=== PATIENT | female | born 1945 | race Caucasian/White ===

== ENCOUNTER 2019-02-09 13:18 | Inpatient (IN) | payer MEDICARE, MEDICAID ==
[~2019-02-09] VITALS: Ht 167.6 cm; Wt 65.8 kg
[2019-02-09 13:26] VITALS: BP 116/67
--- NOTE | 2019-02-09 13:41 | NUR ---
ED Nurse Note: Patient presents to ER due to witnessed syncope at home. Patient lost consciousness for 30 sec per daughter. Per EMS, daughter assisted her to the ground and reports no trauma. Patient awake, alert, oriented x3. Able to follow commands. Regular, unlabored breathing noted. Patient reports no pain or dizziness on supine position. Per patient, patient had sudden dizziness, vomiting x 1. Placed patient on environmental monitoring specialist. Bed in lowest position.
--- NOTE | 2019-02-09 13:55 | NUR ---
ED Nurse Note: Report given to ANTHONY Jara. Patient resting in bed.
--- NOTE | 2019-02-09 14:00 | NUR ---
ED Nurse Note: REPORT RECEIVED FROM ANTHONY KENNEDY. PT AOX4 AND RESPONDING APPROPRIATELY TO QUESTIONS. BP IMPROVED SINCE ARRIVAL: 129/99.
[2019-02-09 14:09] LABS: APPEARANCE,URINE CLEAR; BILIRUBIN, URINE NEGATIVE (NEGATIVE); COLOR,URINE BROWN; GLUCOSE, URINE (UA) 1+ (NEGATIVE); KETONES,URINE 1+ (NEGATIVE); LEUKOCYTE ESTERASE ,URINE 1+ (NEGATIVE); NITRITE,URINE NEGATIVE (NEGATIVE); PH,URINE 7 (4.5-8.0); PROTEIN,URINE 4+ (NEGATIVE); UROBILINOGEN,URINE 1 MG/DL (0.0-1.0)
[2019-02-09 14:10] LABS: BASOPHILS % (AUTO) 0.9 % (0.0-2.0); EOSINOPHILS % (AUTO) 0.3 % (0.0-3.0); HEMATOCRIT 39.5 % (37.0-47.0); HEMOGLOBIN 13.1 G/DL (12.0-16.0); LYMPHOCYTES % (AUTO) 18.2 % (20.0-45.0); MEAN CORPUSCULAR VOLUME 95 FL (80-99); MONOCYTES % (AUTO) 10.8 % (1.0-10.0); NEUTROPHILS % (AUTO) 69.8 % (45.0-75.0); PLATELET COUNT 157 K/UL (150-450); RED BLOOD COUNT 4.14 M/UL (4.20-5.40); RED CELL DISTRIBUTION WIDTH 12.2 % (11.6-14.8); WHITE BLOOD COUNT 5.6 K/UL (4.8-10.8)
--- NOTE | 2019-02-09 14:15 | NUR ---
ED Nurse Note: XRAY AT BEDSIDE
[2019-02-09 14:17] LABS: ANION GAP 8 mmol/L (5-15); BLOOD UREA NITROGEN 16 mg/dL (7-18); CALCIUM 9.1 MG/DL (8.5-10.1); CARBON DIOXIDE 26 MMOL/L (21-32); CHLORIDE 105 MMOL/L (98-107); CREATININE 1.1 MG/DL (0.55-1.30); SODIUM 139 MMOL/L (136-145)
[2019-02-09 14:31] LABS: ALANINE AMINOTRANSFERASE 14 U/L (12-78); ALBUMIN 3.7 G/DL (3.4-5.0); ALKALINE PHOSPHATASE 76 U/L (46-116); ASPARTATE AMINO TRANSFERASE 19 U/L (15-37); BILIRUBIN,TOTAL 0.6 MG/DL (0.2-1.0); CKMB < 0.5 NG/ML (0.0-3.6); CREATINE KINASE 92 U/L (26-308)
--- NOTE | 2019-02-09 15:06 | Diagnostic Imaging Report ---
Indication: Shortness of breath Technique: One view of the chest Comparison: 09/25/2010 Findings: The heart is enlarged. This is a new finding. There is mild interstitial edema. No focal airspace consolidation. No effusions. Impression: Cardiomegaly, new since prior study 09/17/2010. Mild interstitial edema likely reflects mild congestive heart failure
[2019-02-09 15:30] VITALS: BP 117/47
--- NOTE | 2019-02-09 16:13 | NUR ---
ED Nurse Note: KINSEY ZUNIGA: [phone]
--- NOTE | 2019-02-09 16:28 | Emergency Room Report ---
History of Present Illness General Chief Complaint: Syncope Source: Patient, Family Member, EMS Present Illness HPI 73-year-old female presents ED for evaluation. Patient brought in by EMS status post syncopal episode. She states that she's been feeling weak with fever and chills since yesterday. Vomited today felt dizzy, and sat herself down. Denies LOC or hitting her head. Per EMS patient was initially hypotensive. IV fluids given. Upon arrival BP improved. Patient states she feels a little better. Denies chest pain or shortness of breath. Denies cough. Denies headaches or blurry vision. Denies sore throat or earache. No other aggravating relieving factors. Denies any other associated symptoms Allergies: Coded Allergies: No Known Allergies (Unverified , 02/09/19) Patient History Past Medical History: HTN Past Surgical History: none Pertinent Family History: none Social History: Denies: smoking, alcohol use, drug use Now: No Immunizations: UTD Reviewed Nursing Documentation: PMH: Agreed; PSxH: Agreed Nursing Documentation-PMH Past Medical History: No History, Except For Hx Hypertension: Yes Review of Systems All Other Systems: negative except mentioned in HPI Physical Exam Vital Signs Date Time Temp Pulse Resp B/P (MAP) Pulse Ox O2 Delivery O2 Flow Rate FiO2 02/09/19 13:09 99.3 84 16 96/60 99 Room Air Sp02 EP Interpretation: reviewed, normal General Appearance: no apparent distress, alert, GCS 15, non-toxic Head: normocephalic, atraumatic Eyes: bilateral eye normal inspection, bilateral eye PERRL ENT: hearing grossly normal, normal pharynx, no angioedema, normal voice Neck: full range of motion, supple/symm/no masses Respiratory: chest non-tender, lungs clear, normal breath sounds, speaking full sentences Cardiovascular #1: regular rate, rhythm, no edema Cardiovascular #2: 2+ carotid (R), 2+ carotid (L), 2+ radial (R), 2+ radial (L) , 2+ dorsalis pedis (R), 2+ dorsalis pedis (L) Gastrointestinal: normal bowel sounds, non tender, soft, non-distended, no guarding, no rebound Rectal: deferred Genitourinary: normal inspection, no CVA tenderness Musculoskeletal: back normal, gait/station normal, normal range of motion, non- tender Neurologic: alert, oriented x3, responsive, motor strength/tone normal, sensory intact, speech normal Psychiatric: judgement/insight normal, memory normal, mood/affect normal, no suicidal/homicidal ideation Reflexes: 3+ bicep (R), 3+ bicep (L), 3+ tricep (R), 3+ tricep (L), 3+ knee (R) , 3+ knee (L) Skin: normal color, no rash, warm/dry, well hydrated Lymphatic: no adenopathy Medical Decision Making Diagnostic Impression: Primary Impression: Weakness Additional Impression: Flu-like symptoms ER Course Hospital Course 73-year-old female presenting with weakness and dizziness Differential diagnoses include: DE/unstable angina, arrythmia, dehydration Clinical course Patient placed on stretcher. on cardiac care unit nurse. After initial history and physical I ordered labs, EKG, chest x-ray, IVFs labs reviewed- no leukocytosis, hemoglobin/hematocrit ok, electrolytes okay, troponins negative, ua negative, flu swab negative EKG- NSR, no acute ischemic changes interpreted by me Chest x-ray- no acute process Patient feels overall better but somewhat weak still. BP improved. Discussed with family and patient. They're not comfortable with discharge at this time. Given patient's age I believe patient should be admitted for IV hydration and further workup patient will be admitted to Dr Joselito Barber. I feel this is a highly complex case requiring extensive working including EKG/Rhythm strip, Xray/CT/US, Blood/urine lab work, repeat exams while in ED, and administration of strong opiates/narcotics for pain control, admission to hospital or close patient follow up. Diagnosis - weakness, flu like symptoms admitted to floor in serious condition Labs Test 02/09/19 13:36 02/09/19 13:39 White Blood Count 5.6 K/UL (4.8-10.8) Red Blood Count 4.14 M/UL (4.20-5.40) Hemoglobin 13.1 G/DL (12.0-16.0) Hematocrit 39.5 % (37.0-47.0) Mean Corpuscular Volume 95 FL (80-99) Mean Corpuscular Hemoglobin 31.7 PG (27.0-31.0) Mean Corpuscular Hemoglobin Concent 33.2 G/DL (32.0-36.0) Red Cell Distribution Width 12.2 % (11.6-14.8) Platelet Count 157 K/UL (150-450) Mean Platelet Volume 8.2 FL (6.5-10.1) Neutrophils (%) (Auto) 69.8 % (45.0-75.0) Lymphocytes (%) (Auto) 18.2 % (20.0-45.0) Monocytes (%) (Auto) 10.8 % (1.0-10.0) Eosinophils (%) (Auto) 0.3 % (0.0-3.0) Basophils (%) (Auto) 0.9 % (0.0-2.0) Sodium Level 139 MMOL/L (136-145) Potassium Level 4.0 MMOL/L (3.5-5.1) Chloride Level 105 MMOL/L (98-107) Carbon Dioxide Level 26 MMOL/L (21-32) Anion Gap 8 mmol/L (5-15) Blood Urea Nitrogen 16 mg/dL (7-18) Creatinine 1.1 MG/DL (0.55-1.30) Estimat Glomerular Filtration Rate mL/min (>60) Glucose Level 90 MG/DL (74-106) Calcium Level 9.1 MG/DL (8.5-10.1) Total Bilirubin 0.6 MG/DL (0.2-1.0) Aspartate Amino Transf (AST/SGOT) 19 U/L (15-37) Alanine Aminotransferase (ALT/SGPT) 14 U/L (12-78) Alkaline Phosphatase 76 U/L (46-116) Total Creatine Kinase 92 U/L (26-308) Creatine Kinase MB < 0.5 NG/ML (0.0-3.6) Creatine Kinase MB Relative Index Troponin I 0.000 ng/mL (0.000-0.056) Pro-B-Type Natriuretic Peptide 231 pg/mL (0-125) Total Protein 7.3 G/DL (6.4-8.2) Albumin 3.7 G/DL (3.4-5.0) Globulin 3.6 g/dL Albumin/Globulin Ratio 1.0 (1.0-2.7) Urine Color Brown Urine Appearance Clear Urine pH 7 (4.5-8.0) Urine Specific [place] 1.010 (1.005-1.035) Urine Protein 4+ (NEGATIVE) Urine Glucose (UA) 1+ (NEGATIVE) Urine Ketones 1+ (NEGATIVE) Urine Blood 4+ (NEGATIVE) Urine Nitrite Negative (NEGATIVE) Urine Bilirubin Negative (NEGATIVE) Urine Urobilinogen 1 MG/DL (0.0-1.0) Urine Leukocyte Esterase 1+ (NEGATIVE) Urine RBC 5-10 /HPF (0 - 2) Urine WBC 2-4 /HPF (0 - 2) Urine Squamous Epithelial Cells Moderate /LPF (NONE/OCC) Urine Bacteria Few /HPF (NONE) Urine Mucus Few /LPF (NONE/OCC) EKG Diagnostic Results Rate: normal Rhythm: NSR ST Segments: no acute changes ASA given to the pt in ED: No Rhythm Strip Diag. Results EP Interpretation: yes Rhythm: NSR, no PVC's, no ectopy Chest X-Ray Diagnostic Results Chest X-Ray Diagnostic Results : Chest X-Ray Ordered: Yes # of Views/Limited/Complete: 1 View Indication: Other - syncope EP Interpretation: Yes Interpretation: no consolidation, no effusion, no pneumothorax, no acute cardiopulmonary disease Impression: No acute disease Electronically Signed by: Electronically signed by Tres Squires MD Last Vital Signs Date Time Temp Pulse Resp B/P (MAP) Pulse Ox O2 Delivery O2 Flow Rate FiO2 02/09/19 13:26 84 16 116/67 100 Room Air 02/09/19 13:09 99.3 Status: improved Disposition: ADMITTED INPATIENT Condition: Serious Scripts Unable to Obtain Active Prescriptions or Reported Meds Referrals: NOT CHOSEN IPA/,REFERRING (PCP) Tres Squires MD Feb 09, 2019 16:28
[2019-02-09 17:00] VITALS: BP 108/43
--- NOTE | 2019-02-09 17:41 | NUR ---
ED Nurse Note: PER [facility], BED NOT READY. WILL CALL BACK IN 5 MINUTES.
[2019-02-09] MEDS ORDERED: Zolpidem 5mg tab ORAL PRN (17:45)
[2019-02-09] MEDS ORDERED: LORazepam Inj 2mg/ml 1ml IV PRN (17:45)
[2019-02-09] MEDS ORDERED: Mylanta II UD 30ml ORAL PRN (17:45)
[2019-02-09] MEDS ORDERED: Dextrose 50% 25ml Syringe IV PRN (17:45)
[2019-02-09] MEDS ORDERED: Morphine Sulfate 2mg/ml Inj(IV/IM USE ONLY) IVP PRN (17:45)
[2019-02-09] MEDS ORDERED: Miralax 17gm pkt ORAL PRN (17:45)
--- NOTE | 2019-02-09 17:58 | NUR ---
ED Nurse Note: [facility] CALLED FOR PT TRANSFER. REPORT GIVEN TO ANTHONY RIGGINS. PT TAKEN UP TO [facility] VIA GURNEY WITH ALL BELONGINGS ACCOMPANIED BY EMT. VSS.
[2019-02-09 19:00] VITALS: BP 119/60
--- NOTE | 2019-02-09 19:25 | History & Physical ---
History and Physical History & Physicial Dictated for Int Med-Dr Yee no. [id number]. Mich Ventura MD Feb 09, 2019 19:25
[2019-02-09 20:00] VITALS: BP 114/55
--- NOTE | 2019-02-09 20:25 | NUR ---
NURSE NOTES: Received report from Minda Gamboa. Patient is aox4. VSS, no shortness of breath. No dizziness noted. Skin intact. IV site intact and patent. No dizziness noted. Mild weakness, no nausea. Daughter at bedside. Daughter states she will bring in home meds. Explained to patient not to get up and to call nurse for assistance. Patient and daughter verbalized understanding. Oriented to room, side rails upx2. Daughter at bedside. Bed low, call light within reach.
--- NOTE | 2019-02-09 21:45 | History and Physical Report ---
DATE OF ADMISSION: 02/09/2019 CHIEF COMPLAINT: The patient is a 73-year-old white female who presents with chief complaint of "I passed out." HISTORY OF PRESENT ILLNESS: It began approximately three days prior to admission. The patient began to experience fever. The patient was also experiencing some dizziness. The patient also had nausea and vomiting. The patient called her daughter this morning. When the daughter arrived, the patient "passed out." The patient was out for a few seconds. EMS was called. The patient was found to be hypotensive in the field. The patient received two liters of intravenous normal saline. The patient's blood pressure returned to normal. The patient presented to [place] emergency room. The patient was admitted for syncopal episode to rule out acute coronary syndrome versus cerebrovascular accident. REVIEW OF SYSTEMS: CONSTITUTIONAL: The patient denies weight loss or weight gain. The patient complains of fevers and chills as above. HEENT: The patient denies ear or throat pain. The patient denies headache. CARDIOVASCULAR: The patient denies palpitations or chest pain. CHEST: The patient denies wheezes. The patient does complain of some shortness of breath. ABDOMEN: The patient complains of nausea and vomiting associated with loss of consciousness as above. The patient denies constipation or diarrhea. GENITOURINARY: The patient denies dysuria or increased frequency of urination. NEUROMUSCULAR: The patient denies seizures or generalized weakness. PAST MEDICAL HISTORY: Significant for: 1. Hypertension. 2. Hypercholesterolemia. 3. Hypothyroidism. PAST SURGICAL HISTORY: Significant for cholecystectomy. CURRENT MEDICATIONS: 1. Metoprolol of unknown dose. 2. Synthroid of unknown dose. 3. Statin of unknown dose. ALLERGIES: To codeine. SOCIAL HISTORY: The patient is and lives alone. The patient denies tobacco or alcohol use. PHYSICAL EXAMINATION: VITAL SIGNS: Temperature 99.1, respirations 20, pulse 92, blood pressure 117/47. GENERAL: The patient is well-developed and well-nourished white female, no apparent distress. HEENT: Eyes, pupils are equal and responsive to light and accommodation. Extraocular movements are intact. NECK: Supple without lymphadenopathy. CHEST: Lungs are clear to auscultation bilaterally without wheezes or rales. CARDIOVASCULAR: Regular rate. S1 and S2 are normal without murmurs, rubs, or gallops. ABDOMEN: Soft, nontender, and nondistended. Positive bowel sounds. No evidence of hepatosplenomegaly. Currently, no rebound or guarding noted. EXTREMITIES: Negative for clubbing, cyanosis, or edema. RECTAL/GENITAL: Refused. NEUROLOGIC: Cranial nerves II through XII are grossly intact without focal deficits. Motor strength is 5/5 bilaterally. Deep tendon reflexes are 2+ plantar. LABORATORY STUDIES: WBC 5.6, hemoglobin 13.1, hematocrit 39.5, platelets 157,000. Sodium 139, potassium 4.0, chloride 105, CO2 26, BUN 16, creatinine 1.1, glucose 90. Troponin 0.0. BNP slightly elevated 231. Chest x-ray revealed cardiomegaly with mild interstitial edema consistent with congestive heart failure. ASSESSMENT: This is a 73-year-old white female. 1. Fever. 2. Syncopal episode. 3. Congestive heart failure. 4. Hypertension. 5. Hypercholesterolemia. 6. Hypothyroidism. TREATMENT: 1. Syncopal episode. An echocardiogram is pending. A Cardiology consultation is pending with Dr. Bullock. We will follow recommendations of Cardiology. 2. Congestive heart failure by chest x-ray criteria. As above, a Cardiology consultation has been obtained with Dr. Fede Bullock. 3. BNP is only slightly elevated. Echocardiogram is pending. 4. Fever. Source of fever is unclear. The patient has been started empirically on intravenous Rocephin. 5. Hypertension. The patient is currently hypotensive. The patient is currently receiving intravenous fluids for possible orthostatic hypotension versus dehydration. 6. Hypercholesterolemia. 7. Hypothyroidism. A thyroid panel is pending. Mich Ventura M.D. DR: Cristofer JOB#: [id number] CC:
[2019-02-09] MEDS: D5NS 1,000 ML IV SCH (21:50)
[2019-02-10] VITALS: BP 114/54
--- NOTE | 2019-02-10 01:56 | NUR ---
NURSE NOTES: Patient's oral temp 101.9. Left message with Dr. Gr. Awaiting call back. Tylenol given, cooling measures applied. Will continue to monitor.
--- NOTE | 2019-02-10 02:45 | NUR ---
Patient's temp 99.9 oral. Will continue to monitor.
[2019-02-10 04:00] VITALS: BP 113/54
[2019-02-10 07:14] LABS: HEMATOCRIT 33.7 % (37.0-47.0); HEMOGLOBIN 11.4 G/DL (12.0-16.0); MEAN CORPUSCULAR VOLUME 95 FL (80-99); PLATELET COUNT 117 K/UL (150-450); RED BLOOD COUNT 3.54 M/UL (4.20-5.40); RED CELL DISTRIBUTION WIDTH 12.5 % (11.6-14.8); WHITE BLOOD COUNT 3.4 K/UL (4.8-10.8)
[2019-02-10 07:21] LABS: ALANINE AMINOTRANSFERASE 15 U/L (12-78); ALBUMIN 3.1 G/DL (3.4-5.0); ALKALINE PHOSPHATASE 62 U/L (46-116); ANION GAP 5 mmol/L (5-15); ASPARTATE AMINO TRANSFERASE 18 U/L (15-37); BILIRUBIN,TOTAL 0.6 MG/DL (0.2-1.0); BLOOD UREA NITROGEN 12 mg/dL (7-18); CALCIUM 8.7 MG/DL (8.5-10.1); CARBON DIOXIDE 27 MMOL/L (21-32); CHLORIDE 109 MMOL/L (98-107); CHOLESTEROL 125 MG/DL (< 200); CREATININE 0.9 MG/DL (0.55-1.30); HDL CHOLESTEROL 67 MG/DL (40-60); POTASSIUM 3.9 MMOL/L (3.5-5.1); SODIUM 141 MMOL/L (136-145); TRIGLYCERIDES 62 MG/DL (30-150)
--- NOTE | 2019-02-10 07:36 | NUR ---
NURSE NOTES:walking rounds done with leonor garza.patient awake,a/ox4,room air,iv site intact on rac,no c/o pain.plan of care discussed,verbalized understanding.
--- NOTE | 2019-02-10 07:43 | NUR ---
HAND-OFF: Report given to ANTHONY Snell. Patient stable.
[2019-02-10 08:00] VITALS: BP 115/55
--- NOTE | 2019-02-10 10:45 | Cardiac Electrophysiology PN ---
Subjective Subjective [id number] Objective Last 24 Hour Vital Signs Date Time Temp Pulse Resp B/P (MAP) Pulse Ox O2 Delivery O2 Flow Rate FiO2 02/10/19 08:00 98.7 74 17 115/55 (75) 100 02/10/19 07:36 Room Air 02/10/19 04:00 98.3 68 18 113/54 (73) 96 02/10/19 02:15 99.9 02/10/19 01:00 99.9 02/10/19 00:00 101.9 83 18 114/54 (74) 96 02/09/19 20:00 98.6 80 17 114/55 (74) 96 02/09/19 19:20 Room Air 02/09/19 19:00 100.3 92 17 119/60 (79) 99 02/09/19 17:53 98.6 93 16 111/45 97 Room Air 02/09/19 17:00 98.9 94 18 108/43 99 Room Air 02/09/19 15:30 99.1 92 20 117/47 98 Room Air 02/09/19 13:26 84 16 116/67 100 Room Air 02/09/19 13:09 99.3 84 16 96/60 99 Room Air Intake and Output 02/09/19 02/10/19 19:00 07:00 Intake Total 2000 ml 450 ml Output Total 10 ml 500 ml Balance 1990 ml -50 ml Intake IV Total 2000 ml 450 ml Output Urine Total 10 ml 500 ml # Voids 1 Laboratory Tests Test 02/09/19 13:36 02/09/19 13:39 02/10/19 05:35 White Blood Count 5.6 K/UL (4.8-10.8) 3.4 K/UL (4.8-10.8) L Red Blood Count 4.14 M/UL (4.20-5.40) L 3.54 M/UL (4.20-5.40) L Hemoglobin 13.1 G/DL (12.0-16.0) 11.4 G/DL (12.0-16.0) L Hematocrit 39.5 % (37.0-47.0) 33.7 % (37.0-47.0) L Mean Corpuscular Volume 95 FL (80-99) 95 FL (80-99) Mean Corpuscular Hemoglobin 31.7 PG (27.0-31.0) H 32.2 PG (27.0-31.0) H Mean Corpuscular Hemoglobin Concent 33.2 G/DL (32.0-36.0) 33.9 G/DL (32.0-36.0) Red Cell Distribution Width 12.2 % (11.6-14.8) 12.5 % (11.6-14.8) Platelet Count 157 K/UL (150-450) 117 K/UL (150-450) L Mean Platelet Volume 8.2 FL (6.5-10.1) 8.1 FL (6.5-10.1) Neutrophils (%) (Auto) 69.8 % (45.0-75.0) % (45.0-75.0) Lymphocytes (%) (Auto) 18.2 % (20.0-45.0) L % (20.0-45.0) Monocytes (%) (Auto) 10.8 % (1.0-10.0) H % (1.0-10.0) Eosinophils (%) (Auto) 0.3 % (0.0-3.0) % (0.0-3.0) Basophils (%) (Auto) 0.9 % (0.0-2.0) % (0.0-2.0) Sodium Level 139 MMOL/L (136-145) 141 MMOL/L (136-145) Potassium Level 4.0 MMOL/L (3.5-5.1) 3.9 MMOL/L (3.5-5.1) Chloride Level 105 MMOL/L (98-107) 109 MMOL/L (98-107) H Carbon Dioxide Level 26 MMOL/L (21-32) 27 MMOL/L (21-32) Anion Gap 8 mmol/L (5-15) 5 mmol/L (5-15) Blood Urea Nitrogen 16 mg/dL (7-18) 12 mg/dL (7-18) Creatinine 1.1 MG/DL (0.55-1.30) 0.9 MG/DL (0.55-1.30) Estimat Glomerular Filtration Rate mL/min (>60) mL/min (>60) Glucose Level 90 MG/DL (74-106) 96 MG/DL (74-106) Calcium Level 9.1 MG/DL (8.5-10.1) 8.7 MG/DL (8.5-10.1) Total Bilirubin 0.6 MG/DL (0.2-1.0) 0.6 MG/DL (0.2-1.0) Aspartate Amino Transf (AST/SGOT) 19 U/L (15-37) 18 U/L (15-37) Alanine Aminotransferase (ALT/SGPT) 14 U/L (12-78) 15 U/L (12-78) Alkaline Phosphatase 76 U/L (46-116) 62 U/L (46-116) Total Creatine Kinase 92 U/L (26-308) Creatine Kinase MB < 0.5 NG/ML (0.0-3.6) Creatine Kinase MB Relative Index Troponin I 0.000 ng/mL (0.000-0.056) Pro-B-Type Natriuretic Peptide 231 pg/mL (0-125) H Total Protein 7.3 G/DL (6.4-8.2) 6.3 G/DL (6.4-8.2) L Albumin 3.7 G/DL (3.4-5.0) 3.1 G/DL (3.4-5.0) L Globulin 3.6 g/dL 3.2 g/dL Albumin/Globulin Ratio 1.0 (1.0-2.7) 1.0 (1.0-2.7) Urine Color Brown Urine Appearance Clear Urine pH 7 (4.5-8.0) Urine Specific [place] 1.010 (1.005-1.035) Urine Protein 4+ (NEGATIVE) H Urine Glucose (UA) 1+ (NEGATIVE) H Urine Ketones 1+ (NEGATIVE) H Urine Blood 4+ (NEGATIVE) H Urine Nitrite Negative (NEGATIVE) Urine Bilirubin Negative (NEGATIVE) Urine Urobilinogen 1 MG/DL (0.0-1.0) H Urine Leukocyte Esterase 1+ (NEGATIVE) H Urine RBC 5-10 /HPF (0 - 2) H Urine WBC 2-4 /HPF (0 - 2) Urine Squamous Epithelial Cells Moderate /LPF (NONE/OCC) H Urine Bacteria Few /HPF (NONE) Urine Mucus Few /LPF (NONE/OCC) H Neutrophils % (Manual) Pending Lymphocytes % (Manual) Pending Platelet Estimate Pending Platelet Morphology Pending Triglycerides Level 62 MG/DL (30-150) Cholesterol Level 125 MG/DL (< 200) LDL Cholesterol 56 mg/dL (<100) HDL Cholesterol 67 MG/DL (40-60) H Cholesterol/HDL Ratio 1.9 (3.3-4.4) L Thyroid Stimulating Hormone (TSH) 0.629 uiU/mL (0.358-3.740) Microbiology Date/Time Source Procedure Growth Status 02/09/19 15:00 Nasal Nares Influenza Types A,B Antigen (JACK) - Final Complete Fede Bullock MD Feb 10, 2019 10:45
[2019-02-10 12:00] VITALS: BP 135/74
--- NOTE | 2019-02-10 12:38 | Cardiology Report ---
APPROVED REPORT EXAM: Two-dimensional and M-mode echocardiogram with Doppler and color Doppler. INDICATION Syncope M-Mode DIMENSIONS IVSd1.2 (0.7-1.1cm)Left Atrium (MM)3.5 (1.6-4.0cm) LVDd3.6 (3.5-5.6cm)Aortic Root2.6 (2.0-3.7cm) PWd1.0 (0.7-1.1cm)Aortic Cusp Exc.1.6 (1.5-2.0cm) IVSs1.2 cm LVDs2.2 (2.5-4.0cm) PWs1.5 cm Technically difficult study due to poor acoustic windows. Study quality precludes accurate assessment of regional wall motion. Normal left ventricular chamber size, systolic function and wall motion. Left ventricular ejection fraction estimated to be 65-70 %. Mild left ventricular hypertrophy. No evidence of pericardial effusion. All other cardiac chamber sizes are within normal limits. Focal aortic valve sclerosis with adequate cusp excursion. Thickened mitral valve leaflets with normal excursion. Moderate mitral annulus and aortic root calcification. Normal pulmonic valve structure. Normal tricuspid valve structure. IVC is normal in size with physiological collapse. A color flow and spectral Doppler study was performed and revealed: No aortic insufficiency. Mild mitral regurgitation. Normal left ventricular diastolic function. Trace tricuspid regurgitation. Tricuspid systolic velocities suggests peak right ventricular systolic pressure of 28 mmHg. Mild to moderate pulmonic regurgitation present.
--- NOTE | 2019-02-10 13:23 | Consultation ---
History of Present Illness General Chief Complaint: Syncope Present Illness Allergies: Coded Allergies: CODEINE (Verified Adverse Reaction, Intermediate, 02/10/19) Medication History Unable to Obtain Active Prescriptions or Reported Meds Patient History Healthcare decision maker Resuscitation status Full Code Advanced Directive on File Physical Exam Last 24 Hour Vital Signs Date Time Temp Pulse Resp B/P (MAP) Pulse Ox O2 Delivery O2 Flow Rate FiO2 02/10/19 12:00 99.0 87 18 135/74 (94) 98 02/10/19 08:00 98.7 74 17 115/55 (75) 100 02/10/19 07:36 Room Air 02/10/19 04:00 98.3 68 18 113/54 (73) 96 02/10/19 02:15 99.9 02/10/19 01:00 99.9 02/10/19 00:00 101.9 83 18 114/54 (74) 96 02/09/19 20:00 98.6 80 17 114/55 (74) 96 02/09/19 19:20 Room Air 02/09/19 19:00 100.3 92 17 119/60 (79) 99 02/09/19 17:53 98.6 93 16 111/45 97 Room Air 02/09/19 17:00 98.9 94 18 108/43 99 Room Air 02/09/19 15:30 99.1 92 20 117/47 98 Room Air 02/09/19 13:26 84 16 116/67 100 Room Air Intake and Output 02/09/19 02/10/19 19:00 07:00 Intake Total 2000 ml 450 ml Output Total 10 ml 500 ml Balance 1990 ml -50 ml Intake IV Total 2000 ml 450 ml Output Urine Total 10 ml 500 ml # Voids 1 Laboratory Tests Test 02/09/19 13:36 02/09/19 13:39 02/10/19 05:35 White Blood Count 5.6 K/UL (4.8-10.8) 3.4 K/UL (4.8-10.8) L Red Blood Count 4.14 M/UL (4.20-5.40) L 3.54 M/UL (4.20-5.40) L Hemoglobin 13.1 G/DL (12.0-16.0) 11.4 G/DL (12.0-16.0) L Hematocrit 39.5 % (37.0-47.0) 33.7 % (37.0-47.0) L Mean Corpuscular Volume 95 FL (80-99) 95 FL (80-99) Mean Corpuscular Hemoglobin 31.7 PG (27.0-31.0) H 32.2 PG (27.0-31.0) H Mean Corpuscular Hemoglobin Concent 33.2 G/DL (32.0-36.0) 33.9 G/DL (32.0-36.0) Red Cell Distribution Width 12.2 % (11.6-14.8) 12.5 % (11.6-14.8) Platelet Count 157 K/UL (150-450) 117 K/UL (150-450) L Mean Platelet Volume 8.2 FL (6.5-10.1) 8.1 FL (6.5-10.1) Neutrophils (%) (Auto) 69.8 % (45.0-75.0) % (45.0-75.0) Lymphocytes (%) (Auto) 18.2 % (20.0-45.0) L % (20.0-45.0) Monocytes (%) (Auto) 10.8 % (1.0-10.0) H % (1.0-10.0) Eosinophils (%) (Auto) 0.3 % (0.0-3.0) % (0.0-3.0) Basophils (%) (Auto) 0.9 % (0.0-2.0) % (0.0-2.0) Sodium Level 139 MMOL/L (136-145) 141 MMOL/L (136-145) Potassium Level 4.0 MMOL/L (3.5-5.1) 3.9 MMOL/L (3.5-5.1) Chloride Level 105 MMOL/L (98-107) 109 MMOL/L (98-107) H Carbon Dioxide Level 26 MMOL/L (21-32) 27 MMOL/L (21-32) Anion Gap 8 mmol/L (5-15) 5 mmol/L (5-15) Blood Urea Nitrogen 16 mg/dL (7-18) 12 mg/dL (7-18) Creatinine 1.1 MG/DL (0.55-1.30) 0.9 MG/DL (0.55-1.30) Estimat Glomerular Filtration Rate mL/min (>60) mL/min (>60) Glucose Level 90 MG/DL (74-106) 96 MG/DL (74-106) Calcium Level 9.1 MG/DL (8.5-10.1) 8.7 MG/DL (8.5-10.1) Total Bilirubin 0.6 MG/DL (0.2-1.0) 0.6 MG/DL (0.2-1.0) Aspartate Amino Transf (AST/SGOT) 19 U/L (15-37) 18 U/L (15-37) Alanine Aminotransferase (ALT/SGPT) 14 U/L (12-78) 15 U/L (12-78) Alkaline Phosphatase 76 U/L (46-116) 62 U/L (46-116) Total Creatine Kinase 92 U/L (26-308) Creatine Kinase MB < 0.5 NG/ML (0.0-3.6) Creatine Kinase MB Relative Index Troponin I 0.000 ng/mL (0.000-0.056) Pro-B-Type Natriuretic Peptide 231 pg/mL (0-125) H Total Protein 7.3 G/DL (6.4-8.2) 6.3 G/DL (6.4-8.2) L Albumin 3.7 G/DL (3.4-5.0) 3.1 G/DL (3.4-5.0) L Globulin 3.6 g/dL 3.2 g/dL Albumin/Globulin Ratio 1.0 (1.0-2.7) 1.0 (1.0-2.7) Urine Color Brown Urine Appearance Clear Urine pH 7 (4.5-8.0) Urine Specific [place] 1.010 (1.005-1.035) Urine Protein 4+ (NEGATIVE) H Urine Glucose (UA) 1+ (NEGATIVE) H Urine Ketones 1+ (NEGATIVE) H Urine Blood 4+ (NEGATIVE) H Urine Nitrite Negative (NEGATIVE) Urine Bilirubin Negative (NEGATIVE) Urine Urobilinogen 1 MG/DL (0.0-1.0) H Urine Leukocyte Esterase 1+ (NEGATIVE) H Urine RBC 5-10 /HPF (0 - 2) H Urine WBC 2-4 /HPF (0 - 2) Urine Squamous Epithelial Cells Moderate /LPF (NONE/OCC) H Urine Bacteria Few /HPF (NONE) Urine Mucus Few /LPF (NONE/OCC) H Differential Total Cells Counted 100 Neutrophils % (Manual) 67 % (45-75) Lymphocytes % (Manual) 23 % (20-45) Monocytes % (Manual) 10 % (1-10) Eosinophils % (Manual) 0 % (0-3) Basophils % (Manual) 0 % (0-2) Band Neutrophils 0 % (0-8) Platelet Estimate Decreased L Platelet Morphology Normal Red Blood Cell Morphology Normal Triglycerides Level 62 MG/DL (30-150) Cholesterol Level 125 MG/DL (< 200) LDL Cholesterol 56 mg/dL (<100) HDL Cholesterol 67 MG/DL (40-60) H Cholesterol/HDL Ratio 1.9 (3.3-4.4) L Thyroid Stimulating Hormone (TSH) 0.629 uiU/mL (0.358-3.740) Microbiology Date/Time Source Procedure Growth Status 02/09/19 15:00 Nasal Nares Influenza Types A,B Antigen (JACK) - Final Complete Height (Feet): 5 Height (Inches): 6.00 Weight (Pounds): 145 Medications Current Medications Medications (Trade) Dose Ordered Sig/Tenisha Route PRN Reason Start Time Stop Time Status Last Admin Dose Admin Acetaminophen (Tylenol) 650 mg Q4H PRN ORAL fever 02/09/19 17:45 03/11/19 17:44 02/10/19 01:45 Al Hydroxide/Mg Hydroxide (Mylanta II) 30 ml Q6H PRN ORAL dyspepsia 02/09/19 17:45 03/11/19 17:44 Dextrose (Dextrose 50%) 25 ml Q30M PRN IV Hypoglycemia 02/09/19 17:45 03/11/19 17:40 Dextrose (Dextrose 50%) 50 ml Q30M PRN IV hypoglycemia 02/09/19 17:45 03/11/19 17:44 Dextrose/Sodium Chloride 1,000 ml @ 50 mls/hr Q20H IV 02/09/19 22:00 03/11/19 21:59 02/09/19 21:50 Lorazepam (Ativan 2mg/ml 1ml) 0.5 mg Q4H PRN IV For Anxiety 02/09/19 17:45 02/16/19 17:44 Morphine Sulfate (Morphine Sulfate) 1 mg Q4H PRN IVP For Pain 02/09/19 17:45 02/16/19 17:44 Ondansetron HCl (Zofran) 4 mg Q6H PRN IVP Nausea & Vomiting 02/09/19 17:45 03/11/19 17:44 Polyethylene Glycol (Miralax) 17 gm HSPRN PRN ORAL Constipation 02/09/19 17:45 03/11/19 17:44 Zolpidem Tartrate (Ambien) 5 mg HSPRN PRN ORAL Insomnia 02/09/19 17:45 02/16/19 17:44 Assessment/Plan Problem List: (1) Sepsis ICD Codes: A41.9 - Sepsis, unspecified organism SNOMED: 11543496 (2) Acute encephalopathy ICD Codes: G93.40 - Encephalopathy, unspecified SNOMED: 88404625, 280374479 Assessment/Plan olivares culture iv abx renal US b/o flank pain dvt prophylaxis ID evaluation Dayanna Gr MD Feb 10, 2019 13:23
--- NOTE | 2019-02-10 13:53 | NUR ---
CASE MANAGEMENT:REVIEW 73 YR OLD FEMALE BIBA FROM HOME SI: WEAKNESS 99.4 84 16 96/60 99% ON RA IS: 1L NS BOLUS X2 IV ZOSYN CXR : TO MED/SURG PLAN: VENOUS DUPLEX 2DECHO ORTHO STATIC VITALS
[2019-02-10] MEDS ORDERED: Piperacillin/Tazobactam 3.375 GM in NS 110 ML IVPB SCH (14:30)
[2019-02-10 16:00] VITALS: BP_SYST 113; BP_SYST 118; BP_SYST 131; BP_DIAS 59; BP_DIAS 72; BP_DIAS 73
--- NOTE | 2019-02-10 16:29 | Consultation ---
History of Present Illness General Date patient seen: Feb 10, 2019 Chief Complaint: Syncope Present Illness HPI 73 y/o F with hx of HTN, HLD, hypothyroidism, CHF, s/p cholecystectomy presents to ED on 02/09 with syncopal episode . 1 day prior to admission reported feeling week, fevers and chills. Day of admission vomited, felt dizzy and sat herself down. Denied LOC or hitting her head. Per EMS, pt initially hypotensive but responded to IVFs. Denied CP, SOB, cough, WARREN, blurry vision, sore throat upon admission. Allergies: Coded Allergies: CODEINE (Verified Adverse Reaction, Intermediate, 02/10/19) Medication History Unable to Obtain Active Prescriptions or Reported Meds Patient History Healthcare decision maker Resuscitation status Full Code Advanced Directive on File Patient History Narrative Pmhx: as above Shx: Denies: smoking, alcohol use, drug use. The patient is and lives alone. Fhx: non contributory Review of Systems All Other Systems: negative except mentioned in HPI Physical Exam Physical Exam Narrative GENERAL: The patient is well-developed and well-nourished white female, no apparent distress. HEENT: Eyes, pupils are equal and responsive to light and accommodation. Extraocular movements are intact. NECK: Supple without lymphadenopathy. CHEST: Lungs are clear to auscultation bilaterally without wheezes or rales. CARDIOVASCULAR: Regular rate. S1 and S2 are normal without murmurs, rubs, or gallops. ABDOMEN: Soft, nontender, and nondistended. Positive bowel sounds. No evidence of hepatosplenomegaly. Currently, no rebound or guarding noted. EXTREMITIES: Negative for clubbing, cyanosis, or edema. NEUROLOGIC: Cranial nerves II through XII are grossly intact without focal deficits. Motor strength is 5/5 bilaterally. Deep tendon reflexes are 2+ plantar. Last 24 Hour Vital Signs Date Time Temp Pulse Resp B/P (MAP) Pulse Ox O2 Delivery O2 Flow Rate FiO2 02/10/19 12:00 99.0 87 18 135/74 (94) 98 02/10/19 08:00 98.7 74 17 115/55 (75) 100 02/10/19 07:36 Room Air 02/10/19 04:00 98.3 68 18 113/54 (73) 96 02/10/19 02:15 99.9 02/10/19 01:00 99.9 02/10/19 00:00 101.9 83 18 114/54 (74) 96 02/09/19 20:00 98.6 80 17 114/55 (74) 96 02/09/19 19:20 Room Air 02/09/19 19:00 100.3 92 17 119/60 (79) 99 02/09/19 17:53 98.6 93 16 111/45 97 Room Air 02/09/19 17:00 98.9 94 18 108/43 99 Room Air Intake and Output 02/09/19 02/10/19 19:00 07:00 Intake Total 2000 ml 500 ml Output Total 10 ml 500 ml Balance 1990 ml 0 ml Intake IV Total 2000 ml 500 ml Output Urine Total 10 ml 500 ml # Voids 1 Laboratory Tests Test 02/10/19 05:35 White Blood Count 3.4 K/UL (4.8-10.8) L Red Blood Count 3.54 M/UL (4.20-5.40) L Hemoglobin 11.4 G/DL (12.0-16.0) L Hematocrit 33.7 % (37.0-47.0) L Mean Corpuscular Volume 95 FL (80-99) Mean Corpuscular Hemoglobin 32.2 PG (27.0-31.0) H Mean Corpuscular Hemoglobin Concent 33.9 G/DL (32.0-36.0) Red Cell Distribution Width 12.5 % (11.6-14.8) Platelet Count 117 K/UL (150-450) L Mean Platelet Volume 8.1 FL (6.5-10.1) Neutrophils (%) (Auto) % (45.0-75.0) Lymphocytes (%) (Auto) % (20.0-45.0) Monocytes (%) (Auto) % (1.0-10.0) Eosinophils (%) (Auto) % (0.0-3.0) Basophils (%) (Auto) % (0.0-2.0) Differential Total Cells Counted 100 Neutrophils % (Manual) 67 % (45-75) Lymphocytes % (Manual) 23 % (20-45) Monocytes % (Manual) 10 % (1-10) Eosinophils % (Manual) 0 % (0-3) Basophils % (Manual) 0 % (0-2) Band Neutrophils 0 % (0-8) Platelet Estimate Decreased L Platelet Morphology Normal Red Blood Cell Morphology Normal Sodium Level 141 MMOL/L (136-145) Potassium Level 3.9 MMOL/L (3.5-5.1) Chloride Level 109 MMOL/L (98-107) H Carbon Dioxide Level 27 MMOL/L (21-32) Anion Gap 5 mmol/L (5-15) Blood Urea Nitrogen 12 mg/dL (7-18) Creatinine 0.9 MG/DL (0.55-1.30) Estimat Glomerular Filtration Rate mL/min (>60) Glucose Level 96 MG/DL (74-106) Calcium Level 8.7 MG/DL (8.5-10.1) Total Bilirubin 0.6 MG/DL (0.2-1.0) Aspartate Amino Transf (AST/SGOT) 18 U/L (15-37) Alanine Aminotransferase (ALT/SGPT) 15 U/L (12-78) Alkaline Phosphatase 62 U/L (46-116) Total Protein 6.3 G/DL (6.4-8.2) L Albumin 3.1 G/DL (3.4-5.0) L Globulin 3.2 g/dL Albumin/Globulin Ratio 1.0 (1.0-2.7) Triglycerides Level 62 MG/DL (30-150) Cholesterol Level 125 MG/DL (< 200) LDL Cholesterol 56 mg/dL (<100) HDL Cholesterol 67 MG/DL (40-60) H Cholesterol/HDL Ratio 1.9 (3.3-4.4) L Thyroid Stimulating Hormone (TSH) 0.629 uiU/mL (0.358-3.740) Height (Feet): 5 Height (Inches): 6.00 Weight (Pounds): 145 Medications Current Medications Medications (Trade) Dose Ordered Sig/Tenisha Route PRN Reason Start Time Stop Time Status Last Admin Dose Admin Acetaminophen (Tylenol) 650 mg Q4H PRN ORAL fever 02/09/19 17:45 03/11/19 17:44 02/10/19 01:45 Al Hydroxide/Mg Hydroxide (Mylanta II) 30 ml Q6H PRN ORAL dyspepsia 02/09/19 17:45 03/11/19 17:44 Dextrose (Dextrose 50%) 25 ml Q30M PRN IV Hypoglycemia 02/09/19 17:45 03/11/19 17:40 Dextrose (Dextrose 50%) 50 ml Q30M PRN IV hypoglycemia 02/09/19 17:45 03/11/19 17:44 Dextrose/Sodium Chloride 1,000 ml @ 50 mls/hr Q20H IV 02/09/19 22:00 03/11/19 21:59 02/09/19 21:50 Lorazepam (Ativan 2mg/ml 1ml) 0.5 mg Q4H PRN IV For Anxiety 02/09/19 17:45 02/16/19 17:44 Morphine Sulfate (Morphine Sulfate) 1 mg Q4H PRN IVP For Pain 02/09/19 17:45 02/16/19 17:44 Ondansetron HCl (Zofran) 4 mg Q6H PRN IVP Nausea & Vomiting 02/09/19 17:45 03/11/19 17:44 Piperacillin Sod/ Tazobactam Sod 3.375 gm/Sodium Chloride 110 ml @ 27.5 mls/hr EVERY 8 HOURS IVPB 02/10/19 14:30 02/17/19 14:29 02/10/19 15:04 Polyethylene Glycol (Miralax) 17 gm HSPRN PRN ORAL Constipation 02/09/19 17:45 03/11/19 17:44 Zolpidem Tartrate (Ambien) 5 mg HSPRN PRN ORAL Insomnia 02/09/19 17:45 02/16/19 17:44 Assessment/Plan Assessment/Plan Abx: Zosyn 02/10- Assessment: Sepsis- ?source-- ?Flu despite neg screen test. +dry cough (?bronchitis vs early PNA)- r/o bacteremia -u/a neg -CXR: Cardiomegaly, new since prior study 09/17/2010. Mild interstitial edema likely reflects mild congestive heart failure -influenza sc neg Fever Mild pancytopenia Syncopal episode- likely orthostatic hypotension/dehydration HTN HLD hypothyroidism CHF s/p cholecystectomy Plan: -Switch Zosyn #1 to Ceftriaxone and start empiric Tamiflu -f/u cx -Monitor CBC/CMP, temperatures -Bcx x2 -aspiration precautions Thank you for this consultation. Will continue to follow along with you. Discussed with Radha Dwyer M.D. Feb 10, 2019 16:29
--- NOTE | 2019-02-10 16:33 | NUR ---
NURSE NOTES:TEMP 100.8,FOR BLOOD CULTURE,IS PROVIDED AND INSTRUCTED BY RT.STARTED ON ZOSYN IV
--- NOTE | 2019-02-10 17:32 | Internal Med Progress Note ---
Subjective Physician Name Julio C Yee Attending Physician Julio C eYe MD Current Medications Medications (Trade) Dose Ordered Sig/Tenisha Route PRN Reason Start Time Stop Time Status Last Admin Dose Admin Acetaminophen (Tylenol) 650 mg Q4H PRN ORAL fever 02/09/19 17:45 03/11/19 17:44 02/10/19 01:45 Al Hydroxide/Mg Hydroxide (Mylanta II) 30 ml Q6H PRN ORAL dyspepsia 02/09/19 17:45 03/11/19 17:44 Dextrose (Dextrose 50%) 25 ml Q30M PRN IV Hypoglycemia 02/09/19 17:45 03/11/19 17:40 Dextrose (Dextrose 50%) 50 ml Q30M PRN IV hypoglycemia 02/09/19 17:45 03/11/19 17:44 Dextrose/Sodium Chloride 1,000 ml @ 50 mls/hr Q20H IV 02/09/19 22:00 03/11/19 21:59 02/09/19 21:50 Lorazepam (Ativan 2mg/ml 1ml) 0.5 mg Q4H PRN IV For Anxiety 02/09/19 17:45 02/16/19 17:44 Morphine Sulfate (Morphine Sulfate) 1 mg Q4H PRN IVP For Pain 02/09/19 17:45 02/16/19 17:44 Ondansetron HCl (Zofran) 4 mg Q6H PRN IVP Nausea & Vomiting 02/09/19 17:45 03/11/19 17:44 Piperacillin Sod/ Tazobactam Sod 3.375 gm/Sodium Chloride 110 ml @ 27.5 mls/hr EVERY 8 HOURS IVPB 02/10/19 14:30 02/17/19 14:29 02/10/19 15:04 Polyethylene Glycol (Miralax) 17 gm HSPRN PRN ORAL Constipation 02/09/19 17:45 03/11/19 17:44 Zolpidem Tartrate (Ambien) 5 mg HSPRN PRN ORAL Insomnia 02/09/19 17:45 02/16/19 17:44 Allergies: Coded Allergies: CODEINE (Verified Adverse Reaction, Intermediate, 02/10/19) Subjective Awake, alert, responsive, complaining about dizziness, dry cough, feverish. Denies any chest pain, denies any nausea vomiting. Objective Last Vital Signs Date Time Temp Pulse Resp B/P (MAP) Pulse Ox O2 Delivery O2 Flow Rate FiO2 02/10/19 16:00 85 18 113/73 (86) 98 02/10/19 16:00 100.8 02/10/19 07:36 Room Air Laboratory Tests Test 02/10/19 05:35 White Blood Count 3.4 K/UL (4.8-10.8) L Red Blood Count 3.54 M/UL (4.20-5.40) L Hemoglobin 11.4 G/DL (12.0-16.0) L Hematocrit 33.7 % (37.0-47.0) L Mean Corpuscular Volume 95 FL (80-99) Mean Corpuscular Hemoglobin 32.2 PG (27.0-31.0) H Mean Corpuscular Hemoglobin Concent 33.9 G/DL (32.0-36.0) Red Cell Distribution Width 12.5 % (11.6-14.8) Platelet Count 117 K/UL (150-450) L Mean Platelet Volume 8.1 FL (6.5-10.1) Neutrophils (%) (Auto) % (45.0-75.0) Lymphocytes (%) (Auto) % (20.0-45.0) Monocytes (%) (Auto) % (1.0-10.0) Eosinophils (%) (Auto) % (0.0-3.0) Basophils (%) (Auto) % (0.0-2.0) Differential Total Cells Counted 100 Neutrophils % (Manual) 67 % (45-75) Lymphocytes % (Manual) 23 % (20-45) Monocytes % (Manual) 10 % (1-10) Eosinophils % (Manual) 0 % (0-3) Basophils % (Manual) 0 % (0-2) Band Neutrophils 0 % (0-8) Platelet Estimate Decreased L Platelet Morphology Normal Red Blood Cell Morphology Normal Sodium Level 141 MMOL/L (136-145) Potassium Level 3.9 MMOL/L (3.5-5.1) Chloride Level 109 MMOL/L (98-107) H Carbon Dioxide Level 27 MMOL/L (21-32) Anion Gap 5 mmol/L (5-15) Blood Urea Nitrogen 12 mg/dL (7-18) Creatinine 0.9 MG/DL (0.55-1.30) Estimat Glomerular Filtration Rate mL/min (>60) Glucose Level 96 MG/DL (74-106) Calcium Level 8.7 MG/DL (8.5-10.1) Total Bilirubin 0.6 MG/DL (0.2-1.0) Aspartate Amino Transf (AST/SGOT) 18 U/L (15-37) Alanine Aminotransferase (ALT/SGPT) 15 U/L (12-78) Alkaline Phosphatase 62 U/L (46-116) Total Protein 6.3 G/DL (6.4-8.2) L Albumin 3.1 G/DL (3.4-5.0) L Globulin 3.2 g/dL Albumin/Globulin Ratio 1.0 (1.0-2.7) Triglycerides Level 62 MG/DL (30-150) Cholesterol Level 125 MG/DL (< 200) LDL Cholesterol 56 mg/dL (<100) HDL Cholesterol 67 MG/DL (40-60) H Cholesterol/HDL Ratio 1.9 (3.3-4.4) L Thyroid Stimulating Hormone (TSH) 0.629 uiU/mL (0.358-3.740) Microbiology Date/Time Source Procedure Growth Status 02/09/19 15:00 Nasal Nares Influenza Types A,B Antigen (JACK) - Final Complete Intake and Output 02/09/19 02/10/19 19:00 07:00 Intake Total 2000 ml 500 ml Output Total 10 ml 500 ml Balance 1990 ml 0 ml Intake IV Total 2000 ml 500 ml Output Urine Total 10 ml 500 ml # Voids 1 Objective General: No acute distress, awake and alert HEENT: NCAT, sclera anicteric, PERRL, EOMI. Neck: Supple, no significant jugular venous distention, Lungs: Good inspiratory effort, decreased air in the bases, no Wheeze or Rales. Heart: Regular rate and rhythm, normal S1/S2, no murmurs Abdomen: soft, left flank tenderness, nondistended. Normoactive bowel sounds. / Rectal: Refused and deferred. Extremities: No Cyanosis , clubbing or edema. Neuro: A&O x 3, Able to move all extremities Skin: warm, no rashes or lesions Psych: Normal mood and affect Assessment/Plan Assessment/Plan 1. Fever. 2. Syncopal episode. 3. Congestive heart failure. 4. Hypertension. 5. Hypercholesterolemia. 6. Hypothyroidism. TREATMENT: 1. Syncopal episode. An echocardiogram is pending. A Cardiology consultation is pending with Dr. Bullock. We will follow recommendations of Cardiology. 2. Congestive heart failure by chest x-ray criteria. As above, a Cardiology consultation has been obtained with Dr. Fede Bullock. 3. BNP is only slightly elevated. Echocardiogram is pending. 4. Fever. Source of fever is unclear. The patient has been started empirically on intravenous Rocephin. 5. Hypertension. The patient is currently hypotensive. The patient is currently receiving intravenous fluids for possible orthostatic hypotension versus dehydration. 6. Hypercholesterolemia. 7. Hypothyroidism. 2D Echo: Technically difficult study due to poor acoustic windows. Study quality precludes accurate assessment of regional wall motion. Normal left ventricular chamber size, systolic function and wall motion. Left ventricular ejection fraction estimated to be 65-70 %. Mild left ventricular hypertrophy. No evidence of pericardial effusion. All other cardiac chamber sizes are within normal limits. Focal aortic valve sclerosis with adequate cusp excursion. Thickened mitral valve leaflets with normal excursion. Moderate mitral annulus and aortic root calcification. Normal pulmonic valve structure. Normal tricuspid valve structure. IVC is normal in size with physiological collapse. A color flow and spectral Doppler study was performed and revealed: No aortic insufficiency. Mild mitral regurgitation. Normal left ventricular diastolic function. Trace tricuspid regurgitation. Tricuspid systolic velocities suggests peak right ventricular systolic pressure of 28 mmHg. Mild to moderate pulmonic regurgitation present. Julio C Yee MD Feb 10, 2019 17:32
--- NOTE | 2019-02-10 18:57 | Diagnostic Imaging Report ---
EXAM: US Retroperitoneal Complete, Renal CLINICAL HISTORY: PAIN TECHNIQUE: Real-time ultrasound of the retroperitoneum (complete) with image documentation. COMPARISON: No relevant prior studies available. FINDINGS: Right kidney: Unremarkable. No stones. No solid mass. No hydronephrosis. Left kidney: Unremarkable. No stones. No solid mass. No hydronephrosis. Bladder: Unremarkable as visualized. IMPRESSION: Normal retroperitoneal ultrasound.
--- NOTE | 2019-02-10 19:24 | NUR ---
HAND-OFF: Report given to PAULINA CRUZ.PATIENT STABLE.
--- NOTE | 2019-02-10 19:34 | NUR ---
NURSE NOTES: Received report from Minda Snell. Patient is in bed, aox4. No signs of distress. No pain noted. New IV site left hand 22 gauge intact, clean dry. Commode placed at bedside. Reminded patient to call before getting up. Patient verbalized understanding. Family at bedside. Bed low, call light within reach.
[2019-02-10 20:00] VITALS: BP 119/52
--- NOTE | 2019-02-10 20:00 | Consultation ---
DATE OF CONSULTATION: 02/10/2019 CARDIOLOGY CONSULTATION CONSULTING PHYSICIAN: Fede Bullock M.D. REFERRING PHYSICIAN: Julio C Yee M.D. REASON FOR CONSULTATION: Syncope. HISTORY OF PRESENT ILLNESS: The patient is a 73-year-old lady with history of hypertension, on Avapro at home with history of hypothyroidism and hyperlipidemia, presented to hospital after she passed out. The patient has started developing fever and dizziness for three days prior to the admission, and also had nausea and vomiting. The patient for a few seconds episode of hypotensive in the field. The patient is on 2 L of normal saline and blood pressure subsequently normalized. The patient was admitted and a Cardiology consultation was obtained for further evaluation. Her EKG showed sinus rhythm with sinus arrhythmia with nonspecific T-wave abnormality and echocardiogram showed EF of 60%. REVIEW OF SYSTEMS: Negative other than what was mentioned in the history of present illness. PAST MEDICAL HISTORY: 1. Hypertension. 2. Hyperlipidemia. 3. Hypothyroidism. PAST SURGICAL HISTORY: Includes cholecystectomy. MEDICATIONS: Per reconciliation. ALLERGIES: She is allergic to codeine. SOCIAL HISTORY: She is , lives alone. Does not smoke or drink alcohol. PHYSICAL EXAMINATION: VITAL SIGNS: Show blood pressure of 115/55, pulse 74, respirations 17, and temperature 98.7 and initial temperature was 101.9. HEAD AND NECK: Showed no JVD. LUNGS: Clear. CARDIOVASCULAR: Shows regular S1 and S2 with no gallop or murmur. ABDOMEN: Soft. EXTREMITIES: No pitting edema. LABORATORY DATA: Her labs show white count of 6.4, hemoglobin 11.4, hematocrit 32.7, and platelet count of 117,000. Sodium 141, potassium 3.9, BUN of 12, creatinine of 0.9 and glucose of 96. BNP is 231. First troponin is negative. ASSESSMENT AND PLAN: 1. Syncopal episodes. Etiology is unclear at this time. The patient's first troponin is negative, completely rule out DE protocol. EKG does not show any acute ischemic changes. Echocardiogram showed EF of 60%. The patient's blood pressure normalized after IV fluids. I will check orthostatic vital signs as well. 2. History of hypertension. The patient was on Avapro. Hold off antihypertensive agents. 3. History of hyperlipidemia. 4. Temperature of 101.9. 5. Questionable congestive heart failure. Echocardiogram showed normal left ventricular systolic function, EF of 60% despite mil 6. Hypothyroidism. Thank you very much, Dr. Yee, for allowing me to participate in the care of this patient. Please do not hesitate to contact me for any questions regarding my evaluation. Fede Bullock M.D. DR: SAL JOB#: [id number] CC:
[2019-02-10] MEDS: D5NS 1,000 ML IV SCH (20:39)
[2019-02-10] MEDS: cefTRIAXone 1 GM in D5W 55 ML IVPB SCH (22:01)
[2019-02-11] VITALS: BP 116/55
[2019-02-11 04:00] VITALS: BP 118/58
--- NOTE | 2019-02-11 07:58 | NUR ---
NURSE NOTES: Received report from ANTHONY Talbot. Rounding done with outgoing nurse. No respiratory distress noted. Denies any pain at this time. Patient on SCD for DVT prophylaxis. Call light within reach. Will continue to monitor.
[2019-02-11 08:00] VITALS: BP 105/72
--- NOTE | 2019-02-11 08:04 | NUR ---
HAND-OFF: Report given to ANTHONY Treadwell. Patient stable.
--- NOTE | 2019-02-11 11:32 | Infectious Diseases Prog Note ---
Assessment/Plan Assessment/Plan Abx: Zosyn 02/10- Assessment: Sepsis- ?source-- ?Flu despite neg screen test. +dry cough (?bronchitis vs early PNA)- r/o bacteremia -u/a neg -CXR: Cardiomegaly, new since prior study 09/17/2010. Mild interstitial edema likely reflects mild congestive heart failure -influenza sc neg -Bcx p Fever Mild pancytopenia- monitor- if worsening may need to consider hematological/ malignancy process Syncopal episode- likely orthostatic hypotension/dehydration HTN HLD hypothyroidism CHF s/p cholecystectomy Plan: -Continue Ceftriaxone #2 and empiric Tamiflu #2 for now -02/10 SP Zosyn #1 -f/u cx -Monitor CBC/CMP, temperatures -aspiration precautions -CBC, CMP am -peripheral smear -CXR am Thank you for this consultation. Will continue to follow along with you. Discussed with RN. Subjective Allergies: Coded Allergies: CODEINE (Verified Adverse Reaction, Intermediate, 02/10/19) Subjective Tm 100.8 no cbc today bcx p Objective Vital Signs Last 24 Hour Vital Signs Date Time Temp Pulse Resp B/P (MAP) Pulse Ox O2 Delivery O2 Flow Rate FiO2 02/11/19 09:00 Room Air 02/11/19 08:00 73 82 89 02/11/19 08:00 100.4 82 20 105/72 (83) 97 02/11/19 04:00 99.8 74 18 118/58 (78) 94 02/11/19 00:52 79 86 86 02/11/19 00:00 99.4 74 18 116/55 (75) 98 02/10/19 21:00 Room Air 02/10/19 20:00 99.2 75 18 119/52 (74) 98 02/10/19 16:00 85 18 113/73 (86) 98 02/10/19 16:00 100.8 83 18 131/72 (91) 98 02/10/19 16:00 78 18 118/59 (78) 98 02/10/19 12:00 99.0 87 18 135/74 (94) 98 Height (Feet): 5 Height (Inches): 6.00 Weight (Pounds): 145 Objective GENERAL: The patient is well-developed and well-nourished white female, no apparent distress. HEENT: Eyes, pupils are equal and responsive to light and accommodation. Extraocular movements are intact. NECK: Supple without lymphadenopathy. CHEST: Lungs are clear to auscultation bilaterally without wheezes or rales. CARDIOVASCULAR: Regular rate. S1 and S2 are normal without murmurs, rubs, or gallops. ABDOMEN: Soft, nontender, and nondistended. Positive bowel sounds. No evidence of hepatosplenomegaly. Currently, no rebound or guarding noted. EXTREMITIES: Negative for clubbing, cyanosis, or edema. Microbiology Date/Time Source Procedure Growth Status 02/09/19 15:00 Nasal Nares Influenza Types A,B Antigen (JACK) - Final Complete Current Medications Medications (Trade) Dose Ordered Sig/Tenisha Route PRN Reason Start Time Stop Time Status Last Admin Dose Admin Acetaminophen (Tylenol) 650 mg Q4H PRN ORAL fever 02/09/19 17:45 03/11/19 17:44 02/11/19 09:45 Al Hydroxide/Mg Hydroxide (Mylanta II) 30 ml Q6H PRN ORAL dyspepsia 02/09/19 17:45 03/11/19 17:44 Ceftriaxone Sodium 1 gm/ Dextrose 55 ml @ 110 mls/hr Q24H IVPB 02/10/19 23:00 02/17/19 22:59 02/10/19 22:01 Dextrose (Dextrose 50%) 25 ml Q30M PRN IV Hypoglycemia 02/09/19 17:45 03/11/19 17:40 Dextrose (Dextrose 50%) 50 ml Q30M PRN IV hypoglycemia 02/09/19 17:45 03/11/19 17:44 Dextrose/Sodium Chloride 1,000 ml @ 50 mls/hr Q20H IV 02/09/19 22:00 03/11/19 21:59 02/10/19 20:39 Lorazepam (Ativan 2mg/ml 1ml) 0.5 mg Q4H PRN IV For Anxiety 02/09/19 17:45 02/16/19 17:44 Morphine Sulfate (Morphine Sulfate) 1 mg Q4H PRN IVP For Pain 02/09/19 17:45 02/16/19 17:44 Ondansetron HCl (Zofran) 4 mg Q6H PRN IVP Nausea & Vomiting 02/09/19 17:45 03/11/19 17:44 Oseltamivir Phosphate (Tamiflu) 30 mg BID ORAL 02/10/19 20:00 02/15/19 09:01 02/11/19 09:00 Polyethylene Glycol (Miralax) 17 gm HSPRN PRN ORAL Constipation 02/09/19 17:45 03/11/19 17:44 Zolpidem Tartrate (Ambien) 5 mg HSPRN PRN ORAL Insomnia 02/09/19 17:45 02/16/19 17:44 Radha Roa M.D. Feb 11, 2019 11:32
[2019-02-11 12:00] VITALS: BP 115/48
[2019-02-11] MEDS: D5NS 1,000 ML IV SCH ×2 (14:00→17:56)
--- NOTE | 2019-02-11 14:23 | Internal Med Progress Note ---
Subjective Physician Name Julio C Yee Attending Physician Julio C Yee MD Current Medications Medications (Trade) Dose Ordered Sig/Tenisha Route PRN Reason Start Time Stop Time Status Last Admin Dose Admin Acetaminophen (Tylenol) 650 mg Q4H PRN ORAL fever 02/09/19 17:45 03/11/19 17:44 02/11/19 09:45 Al Hydroxide/Mg Hydroxide (Mylanta II) 30 ml Q6H PRN ORAL dyspepsia 02/09/19 17:45 03/11/19 17:44 Ceftriaxone Sodium 1 gm/ Dextrose 55 ml @ 110 mls/hr Q24H IVPB 02/10/19 23:00 02/17/19 22:59 02/10/19 22:01 Dextrose (Dextrose 50%) 25 ml Q30M PRN IV Hypoglycemia 02/09/19 17:45 03/11/19 17:40 Dextrose (Dextrose 50%) 50 ml Q30M PRN IV hypoglycemia 02/09/19 17:45 03/11/19 17:44 Dextrose/Sodium Chloride 1,000 ml @ 50 mls/hr Q20H IV 02/09/19 22:00 03/11/19 21:59 02/10/19 20:39 Lorazepam (Ativan 2mg/ml 1ml) 0.5 mg Q4H PRN IV For Anxiety 02/09/19 17:45 02/16/19 17:44 Morphine Sulfate (Morphine Sulfate) 1 mg Q4H PRN IVP For Pain 02/09/19 17:45 02/16/19 17:44 Ondansetron HCl (Zofran) 4 mg Q6H PRN IVP Nausea & Vomiting 02/09/19 17:45 03/11/19 17:44 Oseltamivir Phosphate (Tamiflu) 30 mg BID ORAL 02/10/19 20:00 02/15/19 09:01 02/11/19 09:00 Polyethylene Glycol (Miralax) 17 gm HSPRN PRN ORAL Constipation 02/09/19 17:45 03/11/19 17:44 Zolpidem Tartrate (Ambien) 5 mg HSPRN PRN ORAL Insomnia 02/09/19 17:45 02/16/19 17:44 Allergies: Coded Allergies: CODEINE (Verified Adverse Reaction, Intermediate, 02/10/19) Subjective Awake, alert, responsive, dry cough. Denies any chest pain, denies any nausea vomiting. No fever reported. Objective Last Vital Signs Date Time Temp Pulse Resp B/P (MAP) Pulse Ox O2 Delivery O2 Flow Rate FiO2 02/11/19 12:00 98.0 66 19 115/48 (70) 96 02/11/19 09:00 Room Air Microbiology Date/Time Source Procedure Growth Status 02/09/19 15:00 Nasal Nares Influenza Types A,B Antigen (JACK) - Final Complete Intake and Output 02/10/19 02/11/19 19:00 07:00 Intake Total 2450 ml 850 ml Balance 2450 ml 850 ml Intake Oral 2000 ml 300 ml IV Total 450 ml 550 ml # Voids 3 1 Objective General: No acute distress, awake and alert HEENT: NCAT, sclera anicteric, PERRL, EOMI. Neck: Supple, no significant jugular venous distention, Lungs: Good inspiratory effort, decreased air in the bases, no Wheeze or Rales. Heart: Regular rate and rhythm, normal S1/S2, no murmurs Abdomen: soft, Not tender, not distended. Normoactive bowel sounds. / Rectal: Refused and deferred. Extremities: No Cyanosis , clubbing or edema. Neuro: A&O x 3, Able to move all extremities Skin: warm, no rashes or lesions Psych: Normal mood and affect Assessment/Plan Assessment/Plan 1. Fever possible Viral syndrome 2. Syncopal episode. 3. Congestive heart failure. 4. Hypertension. 5. Hypercholesterolemia. 6. Hypothyroidism. TREATMENT: 1. Syncopal episode. An echocardiogram is pending. A Cardiology consultation is pending with Dr. Bullock. We will follow recommendations of Cardiology. 2. Congestive heart failure by chest x-ray criteria. As above, a Cardiology consultation has been obtained with Dr. Fede Bullock. 3. BNP is only slightly elevated. Echocardiogram is pending. 4. Fever. Source of fever is unclear. The patient has been started empirically on intravenous Rocephin. 5. Hypertension. The patient is currently hypotensive. The patient is currently receiving intravenous fluids for possible orthostatic hypotension versus dehydration. 6. Hypercholesterolemia. 7. Hypothyroidism. Continue Ceftriaxone #2 and empiric Tamiflu #2 for now DC Home in AM discuss with grand son at bedside 2D Echo: Technically difficult study due to poor acoustic windows. Study quality precludes accurate assessment of regional wall motion. Normal left ventricular chamber size, systolic function and wall motion. Left ventricular ejection fraction estimated to be 65-70 %. Mild left ventricular hypertrophy. No evidence of pericardial effusion. All other cardiac chamber sizes are within normal limits. Focal aortic valve sclerosis with adequate cusp excursion. Thickened mitral valve leaflets with normal excursion. Moderate mitral annulus and aortic root calcification. Normal pulmonic valve structure. Normal tricuspid valve structure. IVC is normal in size with physiological collapse. A color flow and spectral Doppler study was performed and revealed: No aortic insufficiency. Mild mitral regurgitation. Normal left ventricular diastolic function. Trace tricuspid regurgitation. Tricuspid systolic velocities suggests peak right ventricular systolic pressure of 28 mmHg. Mild to moderate pulmonic regurgitation present. Julio C Yee MD Feb 11, 2019 14:23
[2019-02-11] MEDS ORDERED: Tubing IV Secondary IV ONE (15:50)
[2019-02-11] MEDS ORDERED: D5NS 1000ml IV ONE (15:50)
--- NOTE | 2019-02-11 15:54 | Cardiac Electrophysiology PN ---
Assessment/Plan Assessment/Plan 1. Syncopal episodes. Etiology is unclear at this time. The patient's troponin is negative. EKG does not show any acute ischemic changes. Echocardiogram showed EF of 60%. 2. History of hypertension. The patient was on Avapro. Hold off antihypertensive agents. 3. History of hyperlipidemia. 4. Temperature of 101.9 and PNA on Abx 5. Questionable congestive heart failure. Echocardiogram showed normal left ventricular systolic function, EF of 60% 6. Hypothyroidism. DW family Subjective Subjective Feeling better. Family at bedside. Off tele Objective Last 24 Hour Vital Signs Date Time Temp Pulse Resp B/P (MAP) Pulse Ox O2 Delivery O2 Flow Rate FiO2 02/11/19 12:00 98.0 66 19 115/48 (70) 96 02/11/19 10:15 100.0 02/11/19 09:00 Room Air 02/11/19 08:00 73 82 89 02/11/19 08:00 100.4 82 20 105/72 (83) 97 02/11/19 04:00 99.8 74 18 118/58 (78) 94 02/11/19 00:52 79 86 86 02/11/19 00:00 99.4 74 18 116/55 (75) 98 02/10/19 21:00 Room Air 02/10/19 20:00 99.2 75 18 119/52 (74) 98 02/10/19 16:00 85 18 113/73 (86) 98 02/10/19 16:00 100.8 83 18 131/72 (91) 98 02/10/19 16:00 78 18 118/59 (78) 98 Intake and Output 02/10/19 02/11/19 18:59 06:59 Intake Total 2450 ml 900 ml Balance 2450 ml 900 ml Intake Oral 2000 ml 300 ml IV Total 450 ml 600 ml # Voids 3 1 Microbiology Date/Time Source Procedure Growth Status 02/09/19 15:00 Nasal Nares Influenza Types A,B Antigen (JACK) - Final Complete Objective HEAD AND NECK: Showed no JVD. LUNGS: Clear. CARDIOVASCULAR: Shows regular S1 and S2 with no gallop or murmur. ABDOMEN: Soft. EXTREMITIES: No pitting edema. Fede Bullock MD Feb 11, 2019 15:54
--- NOTE | 2019-02-11 16:09 | Pulmonology Progress Note ---
Assessment/Plan Problems: (1) Sepsis (2) Acute encephalopathy Assessment/Plan check cultures\ continue abx check wbc symptomatic treatment dvt prophylaxis Subjective ROS Limited/Unobtainable: No Constitutional: Reports: no symptoms HEENT: Repors: no symptoms Respiratory: Reports: no symptoms Allergies: Coded Allergies: CODEINE (Verified Adverse Reaction, Intermediate, 02/10/19) Objective Last 24 Hour Vital Signs Date Time Temp Pulse Resp B/P (MAP) Pulse Ox O2 Delivery O2 Flow Rate FiO2 02/11/19 12:00 98.0 66 19 115/48 (70) 96 02/11/19 10:15 100.0 02/11/19 09:00 Room Air 02/11/19 08:00 73 82 89 02/11/19 08:00 100.4 82 20 105/72 (83) 97 02/11/19 04:00 99.8 74 18 118/58 (78) 94 02/11/19 00:52 79 86 86 02/11/19 00:00 99.4 74 18 116/55 (75) 98 02/10/19 21:00 Room Air 02/10/19 20:00 99.2 75 18 119/52 (74) 98 Intake and Output 02/10/19 02/11/19 19:00 07:00 Intake Total 2450 ml 850 ml Balance 2450 ml 850 ml Intake Oral 2000 ml 300 ml IV Total 450 ml 550 ml # Voids 3 1 General Appearance: WD/WN HEENT: atraumatic, anicteric Respiratory/Chest: chest wall non-tender, lungs clear Breasts: no masses Cardiovascular: normal peripheral pulses Abdomen: soft, non tender, no organomegaly Extremities: no cyanosis Skin: no rash Microbiology Date/Time Source Procedure Growth Status 02/09/19 15:00 Nasal Nares Influenza Types A,B Antigen (JACK) - Final Complete Current Medications Medications (Trade) Dose Ordered Sig/Tenisha Route PRN Reason Start Time Stop Time Status Last Admin Dose Admin Acetaminophen (Tylenol) 650 mg Q4H PRN ORAL fever 02/09/19 17:45 03/11/19 17:44 02/11/19 09:45 Al Hydroxide/Mg Hydroxide (Mylanta II) 30 ml Q6H PRN ORAL dyspepsia 02/09/19 17:45 03/11/19 17:44 Ceftriaxone Sodium 1 gm/ Dextrose 55 ml @ 110 mls/hr Q24H IVPB 02/10/19 23:00 02/17/19 22:59 02/10/19 22:01 Dextrose (Dextrose 50%) 25 ml Q30M PRN IV Hypoglycemia 02/09/19 17:45 03/11/19 17:40 Dextrose (Dextrose 50%) 50 ml Q30M PRN IV hypoglycemia 02/09/19 17:45 03/11/19 17:44 Dextrose/Sodium Chloride 1,000 ml @ 50 mls/hr Q20H IV 02/09/19 22:00 03/11/19 21:59 02/10/19 20:39 Lorazepam (Ativan 2mg/ml 1ml) 0.5 mg Q4H PRN IV For Anxiety 02/09/19 17:45 02/16/19 17:44 Morphine Sulfate (Morphine Sulfate) 1 mg Q4H PRN IVP For Pain 02/09/19 17:45 02/16/19 17:44 Ondansetron HCl (Zofran) 4 mg Q6H PRN IVP Nausea & Vomiting 02/09/19 17:45 03/11/19 17:44 Oseltamivir Phosphate (Tamiflu) 30 mg BID ORAL 02/10/19 20:00 02/15/19 09:01 02/11/19 09:00 Polyethylene Glycol (Miralax) 17 gm HSPRN PRN ORAL Constipation 02/09/19 17:45 03/11/19 17:44 Zolpidem Tartrate (Ambien) 5 mg HSPRN PRN ORAL Insomnia 02/09/19 17:45 02/16/19 17:44 Dayanna Gr MD Feb 11, 2019 16:09
[2019-02-11 16:13] VITALS: BP 135/67
--- NOTE | 2019-02-11 19:30 | NUR ---
Patient is in bed, aaox4. No signs of distress, no pain noted. IV fluids running. Daughter at bedside. Bed low, call light within reach.
[2019-02-11 20:00] VITALS: BP 131/79
--- NOTE | 2019-02-11 20:05 | NUR ---
HAND-OFF: Report given to ANTHONY Talbot.
--- NOTE | 2019-02-11 21:41 | NUR ---
NURSE NOTES: Patient's daughter brought home medications. Clarified dosage/frequency with patient. Patient taking Metoprol and avapro at home. Dr. Bullock called to see if he wants continued. Awaiting call back. Addendum: 02/11/19 at 2207 by PAULINA JENKINS RN Dr. Gr called to request to continue Crestor, and Synthroid. Awaiting call back
[2019-02-11] MEDS ORDERED: METOPROLOL TART25 MG ORAL (21:53)
[2019-02-11] MEDS ORDERED: CRESTOR10 M1 ORAL (21:53)
[2019-02-11] MEDS ORDERED: AVAPRO150 MG ORAL (21:53)
[2019-02-11] MEDS ORDERED: SYNTHROID137 MCG ORAL (21:53)
[2019-02-11] MEDS: cefTRIAXone 1 GM in D5W 55 ML IVPB SCH (23:24)
[2019-02-12] VITALS: BP 128/52
--- NOTE | 2019-02-12 00:25 | NUR ---
NURSE NOTES: Patient refused orthostatic vital signs. Says "I would like to sleep now please". Will continue to monitor.
[2019-02-12 04:00] VITALS: BP 121/82
--- NOTE | 2019-02-12 07:11 | NUR ---
NURSE NOTES: Dr. Yee called to see if patient can continue Crestor and Synthroid home meds. Awaiting call back.
--- NOTE | 2019-02-12 07:35 | NUR ---
NURSE NOTES: Report received from outgoing RN, rounds made. Patient resting in semi-fowlers position in bed, alert/oriented x4 calm. Denies NV, pain, SOB on RA, dizziness. IVF infusing to right hand without difficulty, as ordered, site asymptomatic. Call light in reach, bed in lowest position. Will continue to monitor.
--- NOTE | 2019-02-12 07:55 | NUR ---
HAND-OFF: Report given to ANTHONY Lake. Patient stable.
[2019-02-12 08:00] VITALS: BP 119/67
[2019-02-12 08:10] LABS: HEMATOCRIT 36.6 % (37.0-47.0); HEMOGLOBIN 12.5 G/DL (12.0-16.0); MEAN CORPUSCULAR VOLUME 94 FL (80-99); PLATELET COUNT 107 K/UL (150-450); RED BLOOD COUNT 3.89 M/UL (4.20-5.40); RED CELL DISTRIBUTION WIDTH 12.2 % (11.6-14.8); WHITE BLOOD COUNT 3.2 K/UL (4.8-10.8)
[2019-02-12 08:32] LABS: ALANINE AMINOTRANSFERASE 16 U/L (12-78); ALBUMIN 3.2 G/DL (3.4-5.0); ALBUMIN/GLOBULIN RATIO 0.9 (1.0-2.7); ALKALINE PHOSPHATASE 60 U/L (46-116); ANION GAP 7 mmol/L (5-15); ASPARTATE AMINO TRANSFERASE 22 U/L (15-37); BLOOD UREA NITROGEN 6 mg/dL (7-18); CALCIUM 8.6 MG/DL (8.5-10.1); CARBON DIOXIDE 28 MMOL/L (21-32); CHLORIDE 105 MMOL/L (98-107); CREATININE 0.8 MG/DL (0.55-1.30); POTASSIUM 3.7 MMOL/L (3.5-5.1); SODIUM 140 MMOL/L (136-145)
[2019-02-12 09:01] LABS: BILIRUBIN,TOTAL 0.4 MG/DL (0.2-1.0)
--- NOTE | 2019-02-12 09:56 | Diagnostic Imaging Report ---
EXAM: XR Chest, 1 View CLINICAL HISTORY: COUGH TECHNIQUE: Frontal view of the chest. COMPARISON: Chest x-ray dated 02/09/19 FINDINGS: Lungs: Interval improvement of the mild interstitial edema versus pulmonary vascular congestion. The lungs are otherwise clear without focal consolidation. Pleural space: Unremarkable. The costophrenic angles are sharp. No visible pneumothorax. Heart: Cardiomegaly, unchanged. Mediastinum: Unremarkable. Bones/joints: Degenerative changes throughout the visualized spine and shoulder joints. Vasculature: Atherosclerotic calcifications within the aortic arch. IMPRESSION: 1. Interval improvement of the mild interstitial edema versus pulmonary vascular congestion. 2. Cardiomegaly.
[2019-02-12 12:00] VITALS: BP 102/52
[2019-02-12] MEDS: D5NS 1,000 ML IV SCH (13:11)
--- NOTE | 2019-02-12 13:30 | NUR ---
NURSE NOTES: Patient with poor appetite, experienced nausea with change of position, medicated with Zofran, as ordered, no emesis, nausea subsided. Orthostatic blood pressures done as ordered this AM, stable. Patient ambulated with RN to bathroom, had BM (brown formed moderate). Demonstrated/encouraged IS use, patient returned demonstration, needs more teaching. Will continue to monitor.
--- NOTE | 2019-02-12 14:26 | Internal Med Progress Note ---
Subjective Physician Name Julio C Yee Attending Physician Julio C Yee MD Current Medications Medications (Trade) Dose Ordered Sig/Tenisha Route PRN Reason Start Time Stop Time Status Last Admin Dose Admin Acetaminophen (Tylenol) 650 mg Q4H PRN ORAL fever 02/09/19 17:45 03/11/19 17:44 02/11/19 23:24 Al Hydroxide/Mg Hydroxide (Mylanta II) 30 ml Q6H PRN ORAL dyspepsia 02/09/19 17:45 03/11/19 17:44 Ceftriaxone Sodium 1 gm/ Dextrose 55 ml @ 110 mls/hr Q24H IVPB 02/10/19 23:00 02/17/19 22:59 02/11/19 23:24 Dextrose (Dextrose 50%) 25 ml Q30M PRN IV Hypoglycemia 02/09/19 17:45 03/11/19 17:40 Dextrose (Dextrose 50%) 50 ml Q30M PRN IV hypoglycemia 02/09/19 17:45 03/11/19 17:44 Dextrose/Sodium Chloride 1,000 ml @ 50 mls/hr Q20H IV 02/09/19 22:00 03/11/19 21:59 02/12/19 13:11 Lorazepam (Ativan 2mg/ml 1ml) 0.5 mg Q4H PRN IV For Anxiety 02/09/19 17:45 02/16/19 17:44 Morphine Sulfate (Morphine Sulfate) 1 mg Q4H PRN IVP For Pain 02/09/19 17:45 02/16/19 17:44 Ondansetron HCl (Zofran) 4 mg Q6H PRN IVP Nausea & Vomiting 02/09/19 17:45 03/11/19 17:44 02/12/19 11:03 Oseltamivir Phosphate (Tamiflu) 30 mg BID ORAL 02/10/19 20:00 02/15/19 09:01 02/12/19 13:10 Polyethylene Glycol (Miralax) 17 gm HSPRN PRN ORAL Constipation 02/09/19 17:45 03/11/19 17:44 Zolpidem Tartrate (Ambien) 5 mg HSPRN PRN ORAL Insomnia 02/09/19 17:45 02/16/19 17:44 Allergies: Coded Allergies: CODEINE (Verified Adverse Reaction, Intermediate, 02/10/19) Subjective Awake, alert, responsive, + some cough. Denies any chest pain, denies any nausea vomiting. No fever reported. Objective Last Vital Signs Date Time Temp Pulse Resp B/P (MAP) Pulse Ox O2 Delivery O2 Flow Rate FiO2 02/12/19 12:00 99.2 65 18 102/52 (69) 98 02/12/19 09:00 Room Air Laboratory Tests Test 02/12/19 07:38 White Blood Count 3.2 K/UL (4.8-10.8) L Red Blood Count 3.89 M/UL (4.20-5.40) L Hemoglobin 12.5 G/DL (12.0-16.0) Hematocrit 36.6 % (37.0-47.0) L Mean Corpuscular Volume 94 FL (80-99) Mean Corpuscular Hemoglobin 32.1 PG (27.0-31.0) H Mean Corpuscular Hemoglobin Concent 34.2 G/DL (32.0-36.0) Red Cell Distribution Width 12.2 % (11.6-14.8) Platelet Count 107 K/UL (150-450) L Mean Platelet Volume 8.6 FL (6.5-10.1) Neutrophils (%) (Auto) % (45.0-75.0) Lymphocytes (%) (Auto) % (20.0-45.0) Monocytes (%) (Auto) % (1.0-10.0) Eosinophils (%) (Auto) % (0.0-3.0) Basophils (%) (Auto) % (0.0-2.0) Differential Total Cells Counted 100 Neutrophils % (Manual) 64 % (45-75) Lymphocytes % (Manual) 26 % (20-45) Monocytes % (Manual) 9 % (1-10) Eosinophils % (Manual) 1 % (0-3) Basophils % (Manual) 0 % (0-2) Band Neutrophils 0 % (0-8) Platelet Estimate Decreased L Platelet Morphology Normal Red Blood Cell Morphology Normal Erythrocyte Sedimentation Rate 38 MM/HR (0-30) H Sodium Level 140 MMOL/L (136-145) Potassium Level 3.7 MMOL/L (3.5-5.1) Chloride Level 105 MMOL/L (98-107) Carbon Dioxide Level 28 MMOL/L (21-32) Anion Gap 7 mmol/L (5-15) Blood Urea Nitrogen 6 mg/dL (7-18) L Creatinine 0.8 MG/DL (0.55-1.30) Estimat Glomerular Filtration Rate mL/min (>60) Glucose Level 101 MG/DL (74-106) Calcium Level 8.6 MG/DL (8.5-10.1) Total Bilirubin 0.4 MG/DL (0.2-1.0) Aspartate Amino Transf (AST/SGOT) 22 U/L (15-37) Alanine Aminotransferase (ALT/SGPT) 16 U/L (12-78) Alkaline Phosphatase 60 U/L (46-116) Lactate Dehydrogenase 184 U/L (81-234) Troponin I 0.000 ng/mL (0.000-0.056) C-Reactive Protein, Quantitative 3.2 mg/dL (0.00-0.90) H Total Protein 6.9 G/DL (6.4-8.2) Albumin 3.2 G/DL (3.4-5.0) L Globulin 3.7 g/dL Albumin/Globulin Ratio 0.9 (1.0-2.7) L Microbiology Date/Time Source Procedure Growth Status 02/10/19 18:08 Blood Blood Culture - Preliminary NO GROWTH AFTER 24 HOURS Resulted 02/10/19 18:00 Blood Blood Culture - Preliminary NO GROWTH AFTER 24 HOURS Resulted 02/09/19 15:00 Nasal Nares Influenza Types A,B Antigen (JACK) - Final Complete Intake and Output 02/11/19 02/12/19 19:00 07:00 Intake Total 860 ml 790 ml Balance 860 ml 790 ml Intake Oral 360 ml 240 ml IV Total 500 ml 550 ml # Voids 2 1 Objective General: No acute distress, awake and alert HEENT: NCAT, sclera anicteric, PERRL, EOMI. Neck: Supple, no significant jugular venous distention, Lungs: Good inspiratory effort, decreased air in the bases, no Wheeze or Rales. Heart: Regular rate and rhythm, normal S1/S2, no murmurs Abdomen: soft, Not tender, not distended. Normoactive bowel sounds. / Rectal: Refused and deferred. Extremities: No Cyanosis , clubbing or edema. Neuro: A&O x 3, Able to move all extremities Skin: warm, no rashes or lesions Psych: Normal mood and affect Assessment/Plan Assessment/Plan 1. Fever possible Viral syndrome 2. Syncopal episode. 3. Congestive heart failure. 4. Hypertension. 5. Hypercholesterolemia. 6. Hypothyroidism. TREATMENT: 1. Syncopal episode. An echocardiogram is pending. A Cardiology consultation is pending with Dr. Bullock. We will follow recommendations of Cardiology. 2. Congestive heart failure by chest x-ray criteria. As above, a Cardiology consultation has been obtained with Dr. Fede Bullock. 3. BNP is only slightly elevated. Echocardiogram is pending. 4. Fever most likely viral syndrome. 5. Hypertension. The patient is currently hypotensive. The patient is currently receiving intravenous fluids for possible orthostatic hypotension versus dehydration. 6. Hypercholesterolemia. 7. Hypothyroidism. DC Home today discuss with Daughter at bedside 2D Echo: Technically difficult study due to poor acoustic windows. Study quality precludes accurate assessment of regional wall motion. Normal left ventricular chamber size, systolic function and wall motion. Left ventricular ejection fraction estimated to be 65-70 %. Mild left ventricular hypertrophy. No evidence of pericardial effusion. All other cardiac chamber sizes are within normal limits. Focal aortic valve sclerosis with adequate cusp excursion. Thickened mitral valve leaflets with normal excursion. Moderate mitral annulus and aortic root calcification. Normal pulmonic valve structure. Normal tricuspid valve structure. IVC is normal in size with physiological collapse. A color flow and spectral Doppler study was performed and revealed: No aortic insufficiency. Mild mitral regurgitation. Normal left ventricular diastolic function. Trace tricuspid regurgitation. Tricuspid systolic velocities suggests peak right ventricular systolic pressure of 28 mmHg. Mild to moderate pulmonic regurgitation present. Julio C Yee MD Feb 12, 2019 14:26
[2019-02-12] MEDS ORDERED: ROBITUSSIN COU237 M2 PO (14:29)
[2019-02-12] MEDS ORDERED: ZITHROMAX TRI-500 MG ORAL (14:30)
[2019-02-12 16:00] VITALS: BP 117/68
--- NOTE | 2019-02-12 16:58 | Pulmonology Progress Note ---
Assessment/Plan Problems: (1) Sepsis (2) Acute encephalopathy Assessment/Plan check cultures\ continue abx check wbc symptomatic treatment dvt prophylaxis Subjective Allergies: Coded Allergies: CODEINE (Verified Adverse Reaction, Intermediate, 02/10/19) Objective Last 24 Hour Vital Signs Date Time Temp Pulse Resp B/P (MAP) Pulse Ox O2 Delivery O2 Flow Rate FiO2 02/12/19 12:00 99.2 65 18 102/52 (69) 98 02/12/19 09:00 Room Air 02/12/19 08:00 75 84 94 02/12/19 08:00 99.3 74 18 119/67 (84) 98 02/12/19 04:00 98.6 91 17 121/82 (95) 96 02/12/19 01:00 100.1 02/12/19 00:00 100.8 75 18 128/52 (77) 96 02/11/19 23:54 100.1 02/11/19 21:00 Room Air 02/11/19 20:00 100.1 88 20 131/79 (96) 96 02/11/19 18:36 75 78 82 02/11/19 18:36 99.4 Intake and Output 02/11/19 02/12/19 19:00 07:00 Intake Total 860 ml 790 ml Balance 860 ml 790 ml Intake Oral 360 ml 240 ml IV Total 500 ml 550 ml # Voids 2 1 Microbiology Date/Time Source Procedure Growth Status 02/10/19 18:08 Blood Blood Culture - Preliminary NO GROWTH AFTER 24 HOURS Resulted 02/10/19 18:00 Blood Blood Culture - Preliminary NO GROWTH AFTER 24 HOURS Resulted Laboratory Tests 02/12/19 07:38: White Blood Count 3.2L, Red Blood Count 3.89L, Hemoglobin 12.5, Hematocrit 36.6L , Mean Corpuscular Volume 94, Mean Corpuscular Hemoglobin 32.1H, Mean Corpuscular Hemoglobin Concent 34.2, Red Cell Distribution Width 12.2, Platelet Count 107L, Mean Platelet Volume 8.6, Neutrophils (%) (Auto) , Lymphocytes (%) ( Auto) , Monocytes (%) (Auto) , Eosinophils (%) (Auto) , Basophils (%) (Auto) , Differential Total Cells Counted 100, Neutrophils % (Manual) 64, Lymphocytes % ( Manual) 26, Monocytes % (Manual) 9, Eosinophils % (Manual) 1, Basophils % ( Manual) 0, Band Neutrophils 0, Platelet Estimate DecreasedL, Platelet Morphology Normal, Red Blood Cell Morphology Normal, Erythrocyte Sedimentation Rate 38H, Sodium Level 140, Potassium Level 3.7, Chloride Level 105, Carbon Dioxide Level 28, Anion Gap 7, Blood Urea Nitrogen 6L, Creatinine 0.8, Estimat Glomerular Filtration Rate , Glucose Level 101, Calcium Level 8.6, Total Bilirubin 0.4, Aspartate Amino Transf (AST/SGOT) 22, Alanine Aminotransferase ( ALT/SGPT) 16, Alkaline Phosphatase 60, Lactate Dehydrogenase 184, Troponin I 0.000, C-Reactive Protein, Quantitative 3.2H, Total Protein 6.9, Albumin 3.2L, Globulin 3.7, Albumin/Globulin Ratio 0.9L Current Medications Medications (Trade) Dose Ordered Sig/Tenisha Route PRN Reason Start Time Stop Time Status Last Admin Dose Admin Acetaminophen (Tylenol) 650 mg Q4H PRN ORAL fever 02/09/19 17:45 03/11/19 17:44 02/11/19 23:24 Al Hydroxide/Mg Hydroxide (Mylanta II) 30 ml Q6H PRN ORAL dyspepsia 02/09/19 17:45 03/11/19 17:44 Ceftriaxone Sodium 1 gm/ Dextrose 55 ml @ 110 mls/hr Q24H IVPB 02/10/19 23:00 02/17/19 22:59 02/11/19 23:24 Dextrose (Dextrose 50%) 25 ml Q30M PRN IV Hypoglycemia 02/09/19 17:45 03/11/19 17:40 Dextrose (Dextrose 50%) 50 ml Q30M PRN IV hypoglycemia 02/09/19 17:45 03/11/19 17:44 Dextrose/Sodium Chloride 1,000 ml @ 50 mls/hr Q20H IV 02/09/19 22:00 03/11/19 21:59 02/12/19 13:11 Lorazepam (Ativan 2mg/ml 1ml) 0.5 mg Q4H PRN IV For Anxiety 02/09/19 17:45 02/16/19 17:44 Morphine Sulfate (Morphine Sulfate) 1 mg Q4H PRN IVP For Pain 02/09/19 17:45 02/16/19 17:44 Ondansetron HCl (Zofran) 4 mg Q6H PRN IVP Nausea & Vomiting 02/09/19 17:45 03/11/19 17:44 02/12/19 11:03 Oseltamivir Phosphate (Tamiflu) 30 mg BID ORAL 02/10/19 20:00 02/15/19 09:01 02/12/19 13:10 Polyethylene Glycol (Miralax) 17 gm HSPRN PRN ORAL Constipation 02/09/19 17:45 03/11/19 17:44 Zolpidem Tartrate (Ambien) 5 mg HSPRN PRN ORAL Insomnia 02/09/19 17:45 02/16/19 17:44 Dayanna Gr MD Feb 12, 2019 16:58
[2019-02-12] MEDS ORDERED: D5NS 1000ml IV ONE ×2 (18:34)
[2019-02-12] MEDS ORDERED: Tubing IV Secondary IV ONE (18:34)
--- NOTE | 2019-02-12 18:35 | NUR ---
NURSE NOTES: Discharge instructions and prescription x1 reviewed with patient's daughter Joya, verbalized understanding. RN picked up home medications from [facility] and returned to patient. All belongings, discharge instructions, prescription x1 and home medications given to patient. IV discontinued, no active bleeding. Patient complains of dizziness, blood pressure rechecked 125/65 mmHg. Provided ice water. Patient transported down to [facility] via . Discharged home at 1835.
--- NOTE | 2019-02-12 19:30 | NUR ---
NURSE NOTES: PATIENT DISCHARGED BY PRIMARY RN ARASELI. [facility] ORDERED. ENDORSED TO NIGHT CHARGE NURSE THAT CASE MANAGEMENT WILL NEED TO BE NOTIFIED IN AM TO SETUP SERVICE FOR PATIENT. PATIENT AND DAUGHTER AT BEDSIDE AND INFORMED BY PRIMARY RN. [facility] TO NOTIFY PATIENT AT HOME NUMBER FIRST [phone]. SECONDARY NUMBER TO NOTIFY DAUGHTER, KINSEY [phone].
--- NOTE | 2019-02-13 11:19 | NUR ---
*-* DISCHARGE PLANNING *-* PATIENT HAS BEEN REFERRED TO: [facility] [phone] Work [phone] Work Fax
--- NOTE | 2019-02-15 11:09 | Discharge Summary ---
Discharge Summary Discharge Summary _ DATE OF ADMISSION: 02/09/2019 DATE OF DISCHARGE: 01/15/2019 DISCHARGED BY: Dr. Yee REASON FOR ADMISSION: 73 years old female with past medical history of hypertension, presented to emergency department after syncopal episode. Patient reported feeling weak with subjective fevers and chills, one episode of vomiting, no hematemesis She felt dizzy and had to sit herself down. She denied loss of consciousness or hitting her head. Per nuclear fuel processing technician patient was hypotensive upon evaluation, and patient received subsequently IV fluids. Upon arrival to emergency department blood pressure improved- 96/60. Patient reported feeling somewhat better. Patient denied chest pain or shortness of breath. Patient denied headache and blurry vision. Patient denied sore throat and earache. Upon evaluation laboratory workup revealed no leukocytosis, stable hemoglobin and hematocrit. ProBNP 221. Troponin negative. EKG revealed normal sinus rhythm , no acute ischemic changes Stable renal parameters and electrolytes. Urinalysis revealed +4 protein, but no evidence of pyuria or bacteria. Chest x-ray demonstrated cardiomegaly, mild interstitial edema, likely reflecting mild congestive heart failure. Influenza screen test was negative. Patient admitted for further management . CONSULTANTS: travel insurance agent Dr. Archuleta pulmonary Dr. Gr ID specialist Dr. Calderon [facility]: Patient admitted. Cardiology consult was requested. In. Serial troponin were negative , EKG did not reveal any acute ischemic changes. Patient was ruled out for acute myocardial infarction. Echocardiogram revealed preserved ejection fraction of 65-70% with normal left ventricular chamber size, systolic function and wall motion. Mild left ventricular hypertrophy noted. No evidence of pericardial effusion. Right ventricular systolic pressure of 28. Patient with history of hypertension, but currently was hypotensive and antihypertensives were on hold. Lipid panel was stable. TSH was within normal limits. Venous duplex bilateral lower extremity revealed no evidence of acute DVT. Patient developed intermittent low-grade fever and leukopenia. Infectious disease consulted. Patient was noted to have a dry cough. Bronchitis versus early pneumonia was suspected. Patient was on empiric ceftriaxone and empiric Tamiflu. Follow-up chest x-ray demonstrated interval improvement of the mild interstitial edema versus pulmonary vascular congestion. Antitussive provided as needed. Patient to continue oral antibiotic upon discharge to complete the course at home. Strict aspiration precautions were maintained. Blood pressure improved with IV hydration. Syncopal episode of unclear etiology, possibly due to infection versus dehydration. Renal ultrasound demonstrated was negative. Renal parameters and electrolytes were closely monitored. Electrolytes corrected as needed, and nephrotoxins were avoided. Mild pancytopenia noted with WBC 3.2, hemoglobin 11.4, platelet count 107. Patient to follow-up with primary care provider to monitor CBC count, and if worsening, may need hematology evaluation. Patient clinically stabilized: blood pressure stable, fevers resolved . Patient was ready for discharge home with home health services . FINAL DIAGNOSES: Sepsis Possible viral syndrome Bronchitis Possible early pneumonia Congestive heart failure Syncopal episode , possibly due to dehydration versus infection Hypotension with history of hypertension Hypercholesterolemia Hypothyroidism Acute encephalopathy Mild pancytopenia DISCHARGE MEDICATIONS: See Medication Reconciliation list. DISCHARGE INSTRUCTIONS: Patient was discharged home with home health services. Follow up with primary care provider in one week. I have been assigned to dictate discharge summary for this account. I was not involved in the patient's management. Frances Gamble NP Feb 15, 2019 11:09
== END 2019-02-12 18:35 | disposition home health service (06) | DRG 871 ==
LOC: EDBD 13:18 → EMR 14:05 → 3E 15:57 → EDBEDREQ 17:27 → 3E 21:23
DX: A41.9 Sepsis, unspecified organism (principal); J18.9 Pneumonia, unspecified organism; D61.818 Other pancytopenia; G93.40 Encephalopathy, unspecified; E86.0 Dehydration; I95.1 Orthostatic hypotension; I10 Essential (primary) hypertension; E03.9 Hypothyroidism, unspecified; Z88.6 Allergy status to analgesic agent; I11.0 Hypertensive heart disease with heart failure; E78.00 Pure hypercholesterolemia, unspecified; B34.9 Viral infection, unspecified; J40 Bronchitis, not specified as acute or chronic; Z90.49 Acquired absence of other specified parts of digestive tract
CPT/HCPCS: 36415; 71045; 76770; 80053; 80061; 81003; 82550; 82553; 83615; 83880; 84443; 84484; 85007; 85025; 85060; 85651; 86140; 86710; 87040; 93005; 93306; 93880; 93970; 96360; 99285; J2405